=== PATIENT | female | born 1980 | race Caucasian/White ===

== ENCOUNTER 2016-12-05 19:58 | Emergency (ER) | payer OTHER ==
[2016-12-05 20:08] VITALS: BP 128/85
--- NOTE | 2016-12-05 21:41 | RAD ---
INDICATION: Left ankle pain after landing wrong thing in the kitchen. COMPARISON: None. TECHNIQUE: 3 views of the left ankle were obtained. FINDINGS: At the distal most tip of the fibular malleolus there is a bony fragment with a poorly corticated edge adjacent to the fibula. Remaining visualized bones are intact and appropriately aligned. The ankle mortise is symmetric. IMPRESSION: POTENTIAL AVULSION FRACTURE AT THE DISTAL LEFT FIBULAR MALLEOLUS. If the patient's symptoms persist, follow-up imaging is recommended.
[2016-12-05] MEDS ORDERED: oxyCODONE/Acetamin 5/325 MG* TAB PO ONE (22:47)
--- NOTE | 2016-12-05 22:49 | ED ---
Lower Extremity - HPI Summary HPI Summary: 36F presents with left ankle pain today. She was dancing and twisted it and felt a pop. She has not been able to ambulate on the area since. There is swelling to the lateral aspect of her ankle. She denies any numbness or tingling. She denies any previous injury. She has not taken anything for pain. - History of Current Complaint Chief Complaint: EDExtremityLower Stated Complaint: LEFT ANKLE INJURY Time Seen by Provider: 12/05/16 21:19 Hx Last Menstrual Period: IUD-DOESN'T GET Pain Intensity: 8 - Allergies/Home Medications Allergies/Adverse Reactions: Allergies Allergy/AdvReac Type Severity Reaction Status Date / Time No Known Allergies Allergy Verified 01/17/15 16:04 PMH/Surg Hx/FS Hx/Imm Hx Endocrine/Hematology History: Denies: Hx Anticoagulant Therapy Respiratory History: Denies: Hx Asthma - Cancer History Cancer Type, Location and Year: THYROID CA - Surgical History Surgery Procedure, Year, and Place: LEFT NECK LYMPH NODE REMOVAL, THYROIDECTOMY Infectious Disease History: No Infectious Disease History: Denies: History Other Infectious Disease, Traveled Outside the in Last 30 Days - Family History Known Family History: Positive: None, Other - no problems with bones or joints in parents or siblings - Social History Alcohol Use: Weekly Alcohol Amount: WEEKENDS Substance Use Type: Reports: None Smoking Status (MU): Heavy Every Day Tobacco Smoker Type: Cigarettes Amount Used/How Often: 1 PPD Review of Systems Negative: Fever Negative: Chest Pain Negative: Shortness Of Breath Positive: Myalgia - left ankle All Other Systems Reviewed And Are Negative: Yes Physical Exam Triage Information Reviewed: Yes Vital Signs On Initial Exam: Initial Vitals Temp Pulse Resp BP Pulse Ox 99.7 F 93 18 128/85 99 12/05/16 20:06 12/05/16 20:06 12/05/16 20:06 12/05/16 20:06 12/05/16 20:06 Vital Signs Reviewed: Yes Appearance: Positive: Pain Distress Skin: Positive: Warm, Dry Head/Face: Positive: Normal Head/Face Inspection Eyes: Positive: Normal, Conjunctiva Clear Respiratory/Lung Sounds: Positive: Clear to Auscultation, Breath Sounds Present Cardiovascular: Positive: Normal, RRR Musculoskeletal: Positive: Limited @ - left ankle, Edema Left - ankle lateral aspect of ankle, Other - good pulses, capillary refill<2secs Diagnostics - Vital Signs Vital Signs Temp Pulse Resp BP Pulse Ox 12/05/16 21:31 99.3 F 93 18 128/85 97 12/05/16 20:06 99.7 F 93 18 128/85 99 - Laboratory Lab Statement: Any lab studies that have been ordered have been reviewed, and results considered in the medical decision making process. - Radiology ankle Xray Interpretation: Positive (See Comments) - IMPRESSION: POTENTIAL AVULSION FRACTURE AT THE DISTAL LEFT FIBULAR MALLEOLUS. Radiology Interpretation Completed By: Radiologist Lower Extremity Course/Dx - Course Course Of Treatment: 36F presents with left ankle pain today. She was dancing and twisted it and felt a pop. She has not been able to ambulate on the area since. There is swelling to the lateral aspect of her ankle. She denies any numbness or tingling. She denies any previous injury. She has not taken anything for pain. neurovascular intact. swelling over lateral aspect ankle. xray avulsion fx of distal fibula so will treat as sprain with cam walking boot. patient understands and agrees with plan. - Diagnoses Differential Diagnosis/HQI/PQRI: Positive: Fracture (Closed), Sprain, Strain Provider Diagnoses: Left ankle injury, Avulsion fracture of distal fibula Discharge - Discharge Plan Condition: Good Disposition: HOME Prescriptions: oxyCODONE/Acetamin 5/325 MG* [Percocet 5/325 TAB*] 1 tab PO Q6H PRN #12 tab MDD 4 PRN Reason: Pain Patient Education Materials: Ankle Sprain (ED) Referrals: Farooq Haque MD [Primary Care Provider] - Augustine Mena MD [Medical Doctor] - Additional Instructions: Stay off ankle as much as possible Ice, elevate, Ibuprofen every 6 hours for pain, use narcotic for break through pain Follow up with primary or ortho if no improvement Return to ED if develop any new or worsening symptoms
[2016-12-05] MEDS: oxyCODONE/Acetamin 5/325 MG* TAB PO ONE ×2 (23:01→23:26)
== END 2016-12-05 23:10 | disposition home or self-care (01) ==
LOC: ED 19:58
DX: S99.912A Unspecified injury of left ankle, initial encounter (principal); S82.832A Other fracture of upper and lower end of left fibula, initial encounter for closed fracture; X50.9XXA Other and unspecified overexertion or strenuous movements or postures, initial encounter; Y93.41 Activity, dancing; Y92.89 Other specified places as the place of occurrence of the external cause; F17.210 Nicotine dependence, cigarettes, uncomplicated
CPT/HCPCS: 99282; A9270-GY

== ENCOUNTER 2017-06-12 13:47 | Emergency (ER) | payer OTHER ==
--- OUTSIDE RECORDS SUMMARY | 2017-06-12 14:03 | XMS REPORT ---
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 Cigarette Use Less Than A Pack Per Day ETOH Use Consumes 1 glass of wine per day Smoking Patient is a former smoker Recreational Drug Use Never Used Drugs Enjoy Exercising Does enjoy exercising Currently Active The patient is currently sexually active Contraceptive Methods Current methods of control used include levonorgestrel Ius Allergies, Adverse Reactions, Alerts Date Description Reaction Status Severity Comments 12/22/2010 NKDA active Medications Medication Date Status Form Strength Qnty SIG Indications Ordering Provider Effexor XR / Active Caps ER 225mg 1 by Unknown 0000 24HR mouth every day Levothyroxine / Active Tablets 125mcg 1 by Unknown Sodium 0000 mouth every day Mirena (52 MG) / Active IUD 20mcg/24HR 2015 Unknown 0000 Pindolol / Active Tablets 10mg Unknown 0000 Levothyroxine 05/31/ Hx Tablets 137mcg 60tabs 1 by Farooq A. Sodium 2017 - mouth Garland, 12/08/ daily M.D. 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 09/03/ needed 2015 Ciprofloxacin 01/30/ Hx Tablets 250mg 6tabs 1 tab by 599.0 Zina HCL 2014 - mouth Brie, 02/02/ twice a Afnp-C 2014 day x 3 days Bupropion HCL 05/30/ Hx Tablets ER 150mg 30tabs take one 305.1 Farooq Knight XL 2014 - 24HR tablet by Garland, 01/30/ mouth one M.D. 2014 time daily Nicotine 05/30/ Hx Gum 2mg QS 1 piece 305.1 Farooq Knight Polacrilex 2014 - tid-qid Garland, 01/30/ M.D. 2013 Amoxicillin/Cla 05/09/ Hx Tablets 875-125mg 20tabs 1 po bid 461.9 Zina vulanate 2013 - x 10 days Brie, Potassium 05/30/ Afnp-C 2014 Tobramycin 05/09/ Hx Solution 0.3% 1Bottl 1-2 gtts 372.00 Zina Sulfate 2012 - e into both Brie, 05/30/ eyes q 4 Afnp-C 2014 hrs x 5 days Out Of Work 05/04/ Hx out of 079.99 Zina 2012 - work Brie, 05/09/ today and Afnp-C 201205/07/12 due to illness Synthroid / Hx Tablets 150mcg 90tabs 1 po qd Farooq A. 0000 - brand Garland, 06/19/ name only M.D. 2015 Synthroid / Hx Tablets 137mcg 117tab Take One Farooq A. 0000 - s Tablet By Garland, 05/04/ Mouth M.D. 2013 Daily Monday Thru Monday Wellbutrin SR / Hx Tablets ER 150mg 1 po qd Unknown 0000 - 12HR 2013 Effexor XR / Hx Caps ER 150mg 1 by Unknown 0000 - 24HR mouth 2016 Pindolol / Hx Tablets 10mg 1 po qd Unknown 0000 - 2016 Alprazolam / Hx Tablets 0.5mg as Unknown 0000 - dreicted 2017 Adderall XR / Hx Caps ER 15mg 1 by Unknown 0000 - 24HR mouth day 2017 dt Oxycodone-Aceta / Hx Tablets 5-325mg 1 po Unknown minophen 0000 - q6hrs prn 2017 Medications Administered in Office Medication Date Status Form Strength Qnty SIG Indications Ordering Provider TB Intradermal Administered Injection Unknown Test 014 Immunizations CPT Code Status Date Vaccine Lot # [id number] Given 03/18/2016 Influenza Vac, Quadriv[place], [place] [id number] Given 04/17/2015 Influenza Vac, [place]riv[place] [address] Given 11/11/2014 MMR Virus Immunization [id number] Given 07/07/2014 MMR Virus Immunization [id number] Given 03/03/2014 DO Not Use Split Influenza Virus Vaccine [id number] Given 04/06/2013 DO Not Use Split Influenza Virus Vaccine Vital Signs Date Vital Result Comment 05/23/2017 BP Systolic 114 mmHg BP Diastolic 60 mmHg Heart Rate 96 /min Body Temperature 100.8 F Height 64 inches 5'4" Weight 155.00 lb BMI (Body Mass Index) 26.6 kg/m2 12/08/2016 BP Systolic 122 mmHg BP Diastolic 82 mmHg Heart Rate 88 /min Body Temperature 98.1 F Respiratory Rate 16 /min Height 64 inches 5'4" 05/30/2016 BP Systolic 120 mmHg BP Diastolic 84 mmHg Heart Rate 80 /min Body Temperature 98.4 F Respiratory Rate 16 /min Height 64 inches 5'4" Weight 160.00 lb BMI (Body Mass Index) 27.5 kg/m2 06/19/2015 BP Systolic 102 mmHg BP Diastolic 64 mmHg Heart Rate 76 /min Body Temperature 98.1 F Respiratory Rate 16 /min Height 64 inches 5'4" Weight 141.50 lb BMI (Body Mass Index) 24.3 kg/m2 09/03/2014 BP Systolic 110 mmHg BP Diastolic 70 mmHg Heart Rate 72 /min Body Temperature 97.1 F Respiratory Rate 14 /min Height 64 inches 5'4" Weight 150.00 lb BMI (Body Mass Index) 25.7 kg/m2 05/14/2014 BP Systolic 120 mmHg BP Diastolic 68 mmHg Heart Rate 76 /min Body Temperature 98.5 F Respiratory Rate 12 /min Height 64 inches 5'4" Weight 157.00 lb BMI (Body Mass Index) 26.9 kg/m2 03/03/2014 BP Systolic 110 mmHg BP Diastolic 70 mmHg Heart Rate 60 /min Body Temperature 98.5 F Respiratory Rate 12 /min Height 64 inches 5'4" Weight 151.00 lb BMI (Body Mass Index) 25.9 kg/m2 01/30/2014 BP Systolic 120 mmHg BP Diastolic 70 mmHg Heart Rate 88 /min Body Temperature 99.5 F Respiratory Rate 18 /min Height 64 inches 5'4" Weight 152.00 lb BMI (Body Mass Index) 26.1 kg/m2 05/30/2013 BP Systolic 120 mmHg BP Diastolic 74 mmHg Heart Rate 84 /min Body Temperature 99.2 F Respiratory Rate 17 /min Height 64 inches 5'4" Weight 152.00 lb BMI (Body Mass Index) 26.1 kg/m2 05/09/2012 BP Systolic 102 mmHg BP Diastolic 60 mmHg Heart Rate 68 /min Body Temperature 97.3 F Respiratory Rate 18 /min Height 64 inches 5'4" Weight 150.00 lb BMI (Body Mass Index) 25.7 kg/m2 05/04/2012 BP Systolic 100 mmHg BP Diastolic 60 mmHg Heart Rate 100 /min Body Temperature 100.3 F Height 64 inches 5'4" Weight 146.00 lb BMI (Body Mass Index) 25.1 kg/m2 02/07/2011 BP Systolic 110 mmHg BP Diastolic 60 mmHg Heart Rate 88 /min Body Temperature 98.7 F Respiratory Rate 16 /min Height 64 inches 5'4" Weight 154.00 lb BMI (Body Mass Index) 26.4 kg/m2 12/22/2010 BP Systolic 120 mmHg BP Diastolic 70 mmHg Heart Rate 80 /min Body Temperature 99.0 F Respiratory Rate 16 /min Height 64 inches 5'4" Weight 150.00 lb BMI (Body Mass Index) 25.7 kg/m2 Right Visual Acuity Distance 20/20 corrected Left Visual Acuity Distance 20/20 corrected Results Test Date Test Result H/L Range Note Influenza A&B-fma 05/23/2017 Influenza A POS Influenza B NEG Laboratory test finding 05/30/2016 TSH 17.10 mIU/L High 0.50-6.00 1 Comprehensive Metabolic Prof 05/30/2016 Sodium 147 mEq/L 134-149 Potassium 4.0 mEq/L 3.6-5.5 Chloride 110 mEq/L 94-112 Carbon Dioxide 26 mEq/L 21-32 Glucose 100 mg/dL 70-105 BUN 15 mg/dL 6-26 Creatinine 0.8 mg/dL 0.6-1.4 BUN/Creat Ratio 18.8 CALC 8.0-36.0 Calcium 10.1 mg/dL 8.6-10.2 Total Protein 7.6 g/dL 6.4-8.3 Albumin 4.7 g/dL 3.8-5.5 Globulin 2.9 g/dL 2.0-4.8 A/G Ratio 1.6 CALC 0.6-2.3 Alk. Phosphatase 72 U/L 30-110 Alt (SGPT) 21 U/L 7-35 Ast (Sgot) 18 U/L 5-34 Total Bilirubin 0.5 mg/dL 0.2-1.3 GFR Non- >60 ml/min/1.73m^ >=60 GFR >60 ml/min/1.73m^ >=60 Complete Blood Count 05/30/2016 WBC 6.8 x10^3/UL 3.6-9.6 RBC 4.93 x10^6/UL 3.90-5.70 HGB 15.2 g/dL 12.1-17.2 HCT 45 % 36-50 MCV 91.0 fL 82.2-97.4 MCH 30.8 pg 27.6-33.3 MCHC 33.8 g/dL 33.0-35.5 RDW 13.9 % High 11.6-13.7 PLT 255 x10^3/UL 150-400 MPV 8.3 fL 7.4-10.4 Gran # 4.4 x10^3/UL 1.5-7.2 Lymph# 2.1 x10^3/UL 0.7-4.9 Fentress# 0.3 x10^3/UL 0.1-0.9 Gran % 62.3 % 42.2-75.2 Lymph % 32.0 % 20.5-51.1 Fentress% 5.7 % 1.7-9.3 Tamar Panel-LD ([facility]) 05/30/2016 Antinuclear Antibodies, Ifa Negative 2, 3 Anti-dsDNA Antibodies 1 IU/mL 0-9 2, 4 Hla B 27 Disease Association Negative 2, 5 Sjogren's AB, Anti-SS-A/-SS-B 05/30/2016 Sjogren's Anti-SS-A <0.2 AI 0.0-0.9 2 Sjogren's Anti-SS-B <0.2 AI 0.0-0.9 2 Rheumatoid Arthritis Factor 05/30/2016 Ra Latex Turbid. 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 Antibodies <0.2 AI 0.0-0.9 2 Antigens Fong Antibodies <0.2 AI 0.0-0.9 2 Lyme AB/Western Blot Reflex 05/30/2016 Lyme IgG/IgM Ab <0.91 ISR 0.00- 0.90 2, 6 Lyme Disease Ab, Quant, IgM <0.80 index 0.00-0.79 2, 7 Ebv Acute Infection 05/30/2016 Ebv Ab Vca, IgM <36.0 U/mL 0.0-35.9 2 , 8 Antibodies Profile Ebv Early Antigen Ab, IgG <9.0 U/mL 0.0-8.9 2, 9 Ebv Ab Vca, IgG 55.6 U/mL High 0.0-17.9 2, 10 Ebv Nuclear Antigen Ab, IgG 530.0 U/mL High 0.0-17.9 2, 11 Interpretation: See Comment: 2, 12 CMV Igg/Igm 05/30/2016 Cytomegalovirus (CMV) Ab, IgG <0.60 U/mL 0.00- 0.59 2, 13 Cytomegalovirus (CMV) Ab, IgM <30.0 AU/mL 0.0-29.9 2, 14 Laboratory test finding 04/10/2015 [facility] [place] [facility] Test SEEE SCANNED Rubella Igg Titer 12/01/2014 Rubella IgG Antibody Positive 15 Rubella IgG Antibody Index 2.4 16 Mumps Igg 12/01/2014 Mumps Virus IgG Antibody Positive 17 Mumps IgG Antibody Index 3.2 18 Rubeola Measles Igg AB 12/01/2014 Rubeola (Measles) IgG Antibody Positive 19 Rubeola IgG Antibody Index 2.4 20 Urine (Fma) 11/11/2014 SP Grav <1.005 Urine, (Fma/CMC/CTX) negative Laboratory test finding 09/09/2014 Clotest SEE RESULT BELOW 21 Laboratory test finding 09/09/2014 Surgical Interface Order SEE RESULT BELOW 22 Urine (Fma) 06/23/2014 SP Grav 1.025 Urine, (Fma/CMC/CTX) NEGATIVE Urine (Fma) 05/14/2014 SP Grav 1.020 Urine, (Fma/CMC/CTX) neg Laboratory test finding 05/14/2014 Lipase 11 U/L 11.0-82.0 , 24 Laboratory test finding 05/14/2014 Amylase, Serum 73 U/L 20-105 Complete Blood Count 05/14/2014 WBC 8.6 x10^3/UL 3.6-9.6 RBC 4.73 x10^6/UL 3.90-5.70 HGB 14.4 g/dL 12.1-17.2 HCT 43 % 36-50 MCV 91.0 fL 82.2-97.4 MCH 30.4 pg 27.6-33.3 MCHC 33.6 g/dL 33.0-35.5 RDW 12.5 % 11.6-13.7 PLT 275 x10^3/UL 150-400 MPV 8.3 fL 7.4-10.4 Gran # 6.3 x10^3/UL 1.5-7.2 Lymph# 2.1 x10^3/UL 0.7-4.9 Fentress# 0.2 x10^3/UL 0.1-0.9 Gran % 72.4 % 42.2-75.2 Lymph % 24.6 % 20.5-51.1 Fentress% 3.0 % 1.7-9.3 Comprehensive Metabolic Prof 05/14/2014 Sodium 137 mEq/L 134-149 Potassium 3.8 mEq/L 3.6-5.5 Chloride 97 mEq/L 94-112 Carbon Dioxide 29 mEq/L 21-32 Glucose 92 mg/dL 70-105 BUN 14 mg/dL 6-26 Creatinine 0.8 mg/dL 0.6-1.4 BUN/Creat Ratio 17.5 CALC 8.0-36.0 Calcium 9.4 mg/dL 8.6-10.2 Total Protein 7.6 g/dL 6.4-8.3 Albumin 4.4 g/dL 3.8-5.5 Globulin 3.2 g/dL 2.0-4.8 A/G Ratio 1.4 CALC 0.6-2.3 Alk. Phosphatase 60 U/L 30-110 Alt (SGPT) 12 U/L 7-35 Ast (Sgot) 13 U/L 5-34 Total Bilirubin 0.6 mg/dL 0.2-1.3 Laboratory test 05/14/2014 Troponin <0.06 ng/mL Low 0.00-2.30 25 finding Varicella Zoster Igg 03/03/2014 Varicella-Zoster Positive 26, 27 AB IgG Antibody Varicella IgG Antibody Index 4.8 26, 28 Hepatitis B Zhen AB Titer 03/03/2014 Hepatitis B Surface AB Reactive Nonreactive 26 Hep B Surf AB Level > 1000.00 mIU/mL <12 26, 29 Laboratory test finding 03/03/2014 TSH 0.09 mIU/L Low 0.50-6.00 30 Comprehensive Metabolic Prof 03/03/2014 Sodium 137 mEq/L 134-149 Potassium 3.8 mEq/L 3.6-5.5 Chloride 105 mEq/L 94-112 Carbon Dioxide 25 mEq/L 21-32 Glucose 91 mg/dL 70-105 BUN 11 mg/dL 6-26 Creatinine 0.7 mg/dL 0.6-1.4 BUN/Creat Ratio 15.7 CALC 8.0-36.0 Calcium 8.9 mg/dL 8.6-10.2 Total Protein 7.3 g/dL 6.4-8.3 Albumin 4.6 g/dL 3.8-5.5 Globulin 2.7 g/dL 2.0-4.8 A/G Ratio 1.7 CALC 0.6-2.3 Alk. Phosphatase 68 U/L 30-110 Alt (SGPT) 16 U/L 7-35 Ast (Sgot) 16 U/L 5-34 Total Bilirubin 0.5 mg/dL 0.2-1.3 Lipid Profile 03/03/2014 Cholesterol 151 mg/dL 120-200 Triglycerides 68 mg/dL 30-200 HDL Cholesterol 47 mg/dL 30-85 LDL (Calculated) 90 CALC 0-129 VLDL Cholesterol 14 mg/dL 0-50 HDL Risk Factor 3.2 CALC 0.0-4.4 Mumps Igg 03/03/2014 Mumps Virus IgG Antibody Positive 26, 31 Mumps IgG Antibody Index 1.8 26, 32 Rubeola Measles Igg AB 03/03/2014 Rubeola (Measles) IgG Antibody Negative 26, 33 Rubeola IgG Antibody Index 0.8 26, 34 MMR Screen ([facility]) 03/03/2014 Rubella Screen Immune IU/mL Immune 26, 35 Ua - Micro (Fma) 01/30/2014 Appearance clear Color yellow Glucose, Urine (Fma/CMC/CTX) neg Bilirubin neg Ketones neg SP Grav 1.015 Blood small PH 7.0 Protein neg Urobil 0.2 Nitrite neg Leukocytes (Fma/CMC/Centrex) moderate Hyaline - /Lpf Granular - /Lpf WBC (a,Centrex) 10-12 RBC - Mucus - /Lpf Epith rare /Lpf Bacteria 2+ /Hpf Amorphous - /Lpf Crystals, Fluid (Fma/CMC/CTX) - Z#Comments - Laboratory test finding 01/30/2014 Urine Culture Escherichia coli 36 Influenza A&B 05/04/2012 Influenza A neg Influenza B neg Laboratory test finding 05/04/2012 Quickstrep neg Negative Throat - Beta Strep Fma Neg @ 48 hrs CBC Auto Diff 01/25/2011 White Blood Count 6.5 CUMM 4.8-10.8 Red Cell Count 4.40 CUMM 4.2-5.4 Hemoglobin 13.4 g/dL 12.0-16.0 Hematocrit 39 % 35-47 Mean Corpuscular Volume 88 um3 79-97 Mean Corpuscular Hemoglob 31 pg 27-31 Mean Corpuscular HGB Cone 35 g/dL 32-36 Redcell Distribution WDTH 13 % 10.5-15 Platelet Count 244 CUMM 150-450 Mean Platelet Volume 10.4 um3 7.4-10.4 Gran % 60.3 % 38-83 Lymph % 30.4 % 25-47 Mononuclear % 5.6 % 1-9 Eosinophil % 2.1 % 0-6 Basophil % 1.6 % 0-2 Abs Lymphs 2.0 1.0-4.8 Abs Mononuclear 0.4 0-0.8 Absolute Neutrophil Count 3.9 1.5-7.7 Abs Eosinophils 0.1 0-0.6 Abs Basophils 0.1 0-0.2 Basic Metabolic Panel 01/25/2011 Sodium 142 mmol/L 135-145 Potassium 4.1 mmol/L 3.5-5.0 Chloride 108 mmol/L 101-111 Co2 (Carbon Dioxide) 30.0 mmol/L 22-32 Anion Gap 4.0 mmol/L 2-11 37 Glucose 90 mg/dL 70-100 BUN 9 mg/dL 6-24 Creatinine 0.7 mg/dL 0.50-1.40 One Over Creatinine 1.42 BUN/Creatinine Ratio 12.9 8-20 Calcium 9.4 mg/dL 8.1-9.9 eGFR Non- 98.9 > 60 eGFR 127.2 > 60 38 Laboratory test finding 01/25/2011 Thyroxine 6.8 g/dL 5-12 T3 Total 0.98 NG/ML 0.5-1.7 TSH 0.61 MIU/ML 0.34-5.60 1 RESULTS VERIFIED BY REPEAT ANALYSIS 2 2 sst 3 Negative <1:80 Borderline 1:80 Positive >1:80 4 Negative <5 Equivocal 5 - 9 Positive >9 5 HLA-B*27 Negative HLA allele interpretation for all loci based on IMGT/HLA database version 3.25.0 HLA Lab CLIA ID Number [id number] This test was performed using PCR (Polymerase Chain Reaction)/SSOP (Sequence Specific Oligonucleotide Probes) technique. SBT (Sequence Based Typing) and/or SSP (Sequence Specific Primers) may be used as supplemental methods when necessary. Please contact [facility] Customer Service at if you have any questions. Director of [facility] Laboratory Dr Scotty Chavez, PhD 6 Negative <0.91 Equivocal 0.91 - 1.09 Positive >1.09 7 Negative <0.80 Equivocal 0.80 - 1.19 Positive >1.19 IgM levels may peak at 3-6 weeks post infection, then gradually decline. 8 Negative <36.0 Equivocal 36.0 - 43.9 Positive >43.9 9 Negative < 9.0 Equivocal 9.0 - 10.9 Positive >10.9 10 Negative <18.0 Equivocal 18.0 - 21.9 Positive >21.9 11 Negative <18.0 Equivocal 18.0 - 21.9 Positive >21.9 12 EBV Interpretation Chart Interpretation EBV-IgM EA(D)-IgG VCA-IgG EBNA-IgG EBV Seronegative - - - - Early Phase + - - - Acute Primary + +or- + - Infection Convalescence/Past - +or- + + Infection Reactivated +or- + + + Infection + Antibody Present - Antibody Absent 13 Negative <0.60 Equivocal 0.60 - 0.69 Positive >0.69 14 Negative <30.0 Equivocal 30.0 - 34.9 Positive >34.9 A positive result is generally indicative of acute infection, reactivation or persistent IgM production. 15 Results suggest response to immunization or prior exposure to the virus. REFERENCE VALUE Vaccinated: Positive (>=1.0 AI) Unvaccinated: Negative (<=0.7 AI) 16 Test Performed by: [facility] [place] [address] Facs Teacher: Fly Gross II, M.D., Ph.D. 17 Results suggest response to immunization or prior exposure to the virus. REFERENCE VALUE Vaccinated: Positive (>=1.1 AI) Unvaccinated: Negative (<=0.8 AI) 18 Test Performed by: [facility] [place] [address] Facs Teacher: Fly Gross II, M.D., Ph.D. 19 Results suggest response to immunization or prior exposure to the virus. REFERENCE VALUE Vaccinated: Positive (>=1.1 AI) Unvaccinated: Negative (<=0.8 AI) 20 Test Performed by: [place] [address] Facs Teacher: Fly Gross II, M.D., Ph.D. 21 SEE RESULT BELOW Name: ASHLEY GRANADOS : [address]: Luis Mac MD Acct: [id number] Unit: [id number] AGE: 34 Location: [facility] Re09/09/14 SEX: F Status: REG REF SPEC: [id number] JAM: 09/09/14-1222 [facility] DR: Luis Mac MD REQ: [id number] RECD: 09/09/14-1706 STATUS: DYLAN HUNTER DR: Farooq Haque MD _ SOURCE: GAS ANTRUM SPDESC: ORDERED: Clotest Procedure Result Verified Site Clotest Final 09/10/14- 0736 ML Clotest Negative * ML - MAIN LAB (PSC1) . END OF REPORT * ML=Testing performed at Main Lab DEPARTMENT OF PATHOLOGY, [address] [place] [address] Kwesi Salgado M.D. Director [facility] # [id number] 22 SEE RESULT BELOW Name: ASHLEY GRANADOS : [address]: Luis Mac MD Acct: [id number] Unit: [id number] AGE: 34 Location: [facility] Re09/09/14 SEX: F Status: REG REF SPEC: [id number] JAM: 09/09/14-1221 [facility] DR: Luis Mac MD REQ: [id number] RECD: 09/09/14 STATUS: DELMY HUNTER DR: Farooq Haque MD _ ORDERED: LEVEL IV FINAL DIAGNOSIS Small bowel, duodenum, biopsy: -- Small bowel mucosa with normal villous architecture and no significant pathologic abnormality. -- No infectious agents or viral pathologic changes identified. CLINICAL HISTORY No history given. POST-OPERATIVE DIAGNOSIS EGD. Esophagus - normal, Stomach - small - biopsy, Duodenum - normal, biopsy. Conclusion/Plan: PPI, follow up biopsy. GROSS DESCRIPTION The specimen is received in formalin labeled, Duodenal Biopsy, and consists of a 0.5 x 0.2 x 0.1 cm hoang irregular soft tissue fragment, which is submitted entirely in one cassette. Signed (signature on file) Kwesi Salgado MD 1127 END OF REPORT * ML=Testing performed at Main Lab DEPARTMENT OF PATHOLOGY, [address] [place] [address] Kwesi Salgado M.D. Director [facility] # [id number] 23 1 sst 24 1 sst 25 RESULTS VERIFIED BY REPEAT ANALYSIS 26 2 poured off serum 27 Results suggest response to immunization or prior exposure to the virus. REFERENCE VALUE Vaccinated: Positive (>=1.1 AI) Unvaccinated: Negative (<=0.8 AI) 28 Test Performed by: [place] [address] Facs Teacher: Jimenez Drew M.D. 29 This assay does not differentiate between reactivity due to a vaccine-induced immune response or an immune response induced by infection with HBV. 30 RESULTS VERIFIED BY REPEAT ANALYSIS 31 Results suggest response to immunization or prior exposure to the virus. REFERENCE VALUE Vaccinated: Positive (>=1.1 AI) Unvaccinated: Negative (<=0.8 AI) 32 Test Performed by: [place] [address] Facs Teacher: Jimenez Drew M.D. 33 REFERENCE VALUE Vaccinated: Positive (>=1.1 AI) Unvaccinated: Negative (<=0.8 AI) 34 Test Performed by: [place] [address] Facs Teacher: Jimenez Drew M.D. 35 2 poured off serum 36 Escherichia coli >100,000 col/ml URINE CULTURE organism 1 Escherichia coli >100,000 col/ml Ampicillin 8 Susceptible Ampicillin/sulbactam 4 Susceptible Cefazolin <=4 Susceptible Cefoxitin <=4 Susceptible Ciprofloxacin <=0.25 Susceptible Ertapenem <=0.5 Susceptible Gentamicin <=1 Susceptible Imipenem <=0.25 Susceptible Levofloxacin <=0.12 Susceptible Nitrofurantoin <=16 Susceptible Piperacillin/tazobactam <=4 Susceptible Trimethoprim/Sulfa <=20 Susceptible 37 Anion gap measurement may be of limited value in the presence of any alkalosis, especially in a combined acid base disorder. . 38 Because ethnic data is not always readily available, this report includes an eGFR for both -Americans and non- Americans. The National Kidney Disease Education Program (NKDEP) does not endorse the use of the MDRD equation for patients that are not between the ages of 18 and 70, are , have extremes of body size, muscle mass, or nutritional status, or are non- or non-. According to the National Kidney Foundation, irrespective of diagnosis, the stage of the disease is based on the level of kidney function: Stage Description GFR(mL/min/1.73 m(2)) 1 Kidney damage with normal or decreased GFR 90 2 Kidney damage with mild decrease in GFR 60-89 3 Moderate decrease in GFR 30-59 4 Severe decrease in GFR 15-29 5 Kidney failure <15 (or dialysis) Procedures Description No Information Encounters Type Date Location Provider CPT E/M Dx Office Visit 12/08/2016 1:00p Main Office Farooq Haque M.D. 22091 S82.65xA Y92.018 Office Visit 05/30/2016 3:00p [facility] Office Farooq Haque M.D. 14044 R53.83 E03.9 Office Visit 06/19/2015 8:30a [facility] Office TOMAS MacielP 80351 E03.9 Z00.00 Office Visit 09/03/2014 3:00p [facility] Office Farooq Haque M.D. 13450 789.06 Office Visit 05/14/2014 3:30p [facility] Office Farooq Haque M.D. 29479 789.06 Office Visit 03/03/2014 1:00p [facility] Office Farooq Haque M.D. 76416 V70.3 244.9 V04.81 Office Visit 01/30/2014 10:45a Main Office Isidoro Galloway 99689 599.0 Office Visit 05/30/2013 4:20p Main Office Farooq Haque M.D. 39232 305.1 Office Visit 05/09/2012 2:00p [facility] Office Isidoro Galloway 24205 461.9 372.00 Office Visit 05/04/2012 3:15p [facility] Office Sadiq Galloway-Val 60455 079.99 Office Visit 02/07/2011 3:00p [facility] Office Farooq Haque M.D. 98040 785.0 Office Visit 12/22/2010 2:30p [facility] Office Farooq Haque M.D. G0436 244.9 795.00 305.1 Plan of Care 05/23/2017 - Loren Elise, [id number] CoughComments:Coughing is rough on your system. Not only do they make you really tired but they dehydrate you really quickly! ~U_Supportive care~u_: 1) Make sure you are resting. This is the only way the body can take the energy it needs to heal itself. 2) Fluids, fluids, fluids! - Drink a lot of water or other caffeine free, clear liquids - Use a humidifier in your room at night - If tolerated, use a saline nasal spray to help clear out your sinuses 3) Cough and blow it out, the more you can get out of your system the better4) Make sure you are washing your hands well so you are not spreading your illness to the community. 5) You can take Acetaminophen or Ibuprofen as directed for painR50.9 Fever, unspecifiedComments:Tylenol or Ibuprofen for fever/painJ09.x2 Flu due to ident novel influenza A virus w oth resp manifestComments:ED precautions reviewed encouraged fluids, OTC medications no work x 1 weekAllComments:~B_~U_Medication Management~b_~u_ Patient Understands medications she's taking? Yes No Are there Barriers to Adherence? Yes No Has the patient been asked about herbal supplements and therapies, and OTC meds? Yes No ~B_~U_Care Plan~b_~u_1. Patient has been queried about patient's goals/preferences and functional/ lifestyle goals at relevant visits. If relevant, describe: na2. Treatment goals as explained to the patient: above3. Are there barriers to meeting treatment goals? Yes No If Yes, please describe:4. Self-Management goals as described to the patient: Yes NoFollow up:As always, we strongly encourage a healthy diet and making physical activity a part of your every day life. If you have questions about how or where to start, please contact the office.
--- NOTE | 2017-06-12 15:02 | ED ---
Head Injury - HPI Summary HPI Summary: Patient is an otherwise healthy 37-year-old female who presents to the ED with headache, confusion, "fogginess" and mild nausea since last evening after sustaining a head injury at work. She states she hit the very crown of her head on a large metal box while working. Denies loss of consciousness. Denies memory loss. She endorses 9 out of 10 headache which has improved since last night. Continues to have some confusion and fogginess. Denies nausea currently. She has never had a head injury before. History of thyroid cancer which is in remission. Has not taken any medications for relief. Denies any visual changes. Denies neck pain. - History Of Current Complaint Chief Complaint: EDHeadInjury Stated Complaint: HIT HEAD -1DAY, HEADACHE DIZZY Time Seen by Provider: 06/12/17 14:08 Hx Obtained From: Patient Hx Last Menstrual Period: IUD-DOESN'T GET Mechanism Of Injury: Blunt Trauma Onset/Duration: Started Hours Ago Onset of Pain: Immediate Severity Currently: Mild Severity Initially: Mild Pain Intensity: 2 Pain Scale Used: 0-10 Numeric Location of Head Injury: Diffuse Character: Throbbing Alleviating Factor(s): Rest Related History: Similar Episode/Dx as - Risk Factors SDH Risk Factor: Negative - Allergies/Home Medications Allergies/Adverse Reactions: Allergies Allergy/AdvReac Type Severity Reaction Status Date / Time No Known Allergies Allergy Verified 12/08/16 14:38 PMH/Surg Hx/FS Hx/Imm Hx Previously Healthy: Yes Endocrine/Hematology History: Denies: Hx Anticoagulant Therapy, Hx Diabetes Cardiovascular History: Denies: Hx Hypertension, Hx Pacemaker/ICD Respiratory History: Denies: Hx Asthma History: Denies: Hx Renal Disease Sensory History: Denies: Hx Hearing Aid Psychiatric History: Denies: Hx Panic Disorder - Cancer History Cancer Type, Location and Year: THYROID CA Hx Chemotherapy: No Hx Radiation Therapy: Yes - Surgical History Surgery Procedure, Year, and Place: LEFT NECK LYMPH NODE REMOVAL, THYROIDECTOMY - Immunization History Hx Pertussis Vaccination: No Immunizations Up to Date: Unable to Obtain/Confirm Infectious Disease History: No Infectious Disease History: Denies: History Other Infectious Disease, Traveled Outside the [place] in Last 30 Days - Family History Known Family History: Positive: None, Other - no problems with bones or joints in parents or siblings - Social History Occupation: Employed Full-time Lives: With Family Alcohol Use: Weekly Alcohol Amount: WEEKENDS Hx Substance Use: No Substance Use Type: Reports: None Hx Tobacco Use: Yes Smoking Status (MU): Heavy Every Day Tobacco Smoker Type: Cigarettes Amount Used/How Often: 1 PPD Review of Systems Constitutional: Negative Negative: Fever, Chills, Fatigue Eyes: Negative Cardiovascular: Negative Genitourinary: Negative Positive: no symptoms reported, see HPI Musculoskeletal: Negative Neurological: Other - feeling "foggy" Positive: Headache Psychological: Normal All Other Systems Reviewed And Are Negative: Yes Physical Exam Triage Information Reviewed: Yes Vital Signs On Initial Exam: Initial Vitals Temp Pulse Resp BP Pulse Ox 98.7 F 89 16 132/84 99 06/12/17 13:53 06/12/17 13:53 06/12/17 13:53 06/12/17 13:53 06/12/17 13:53 Vital Signs Reviewed: Yes Appearance: Positive: No Pain Distress, Well-Nourished Skin: Positive: Warm, Skin Color Reflects Adequate Perfusion Head/Face: Positive: Normal Head/Face Inspection Eyes: Positive: EOMI, LUCIA, Conjunctiva Clear Neck: Positive: Supple Respiratory/Lung Sounds: Positive: Clear to Auscultation, Breath Sounds Present Cardiovascular: Positive: RRR, Pulses are Symmetrical in both Upper and Lower Extremities Musculoskeletal: Positive: Normal, Strength/ROM Intact Neurological: Positive: Sensory/Motor Intact, Alert, Oriented to Person Place, Time, Speech Normal Psychiatric: Positive: Normal, Affect/Mood Appropriate Diagnostics - Vital Signs Vital Signs Temp Pulse Resp BP Pulse Ox 06/12/17 13:53 98.7 F 89 16 132/84 99 - Laboratory Lab Statement: Any lab studies that have been ordered have been reviewed, and results considered in the medical decision making process. Head Injury Course/Dx Course Of Treatment: During the course of treatment, the patient is evaluated for headache, "fogginess" after hitting her head last night at work on a large metal box. I have discussed at length the risks and benefits to a CT brain and has diagnosed her with a mild concussion. After discussing risks and benefits, patient would like to proceed with a CAT scan. According to [facility] CT Head Rules, CT was NOT obtained d/t: GCS score >15 at 2h post injury. No suspected open or depressed skull fx, no sign of basal skull fx, no hemotympanum, raccoon eyes, Battles sign, CSF wilma-/rhinorrhea, no emesis after injury, age <64yo, no amnesia greater than 30 minutes prior to trauma, and mechanism of injury was minimal impact with no MVA or fall greater than 3 ft. Complete neuro exam completed and WNL. Normal head/face inspection with no cephalohematoma. Reflexes intact. EOMI, LUCIA, visual acuity intact. No obvious confusion or memory loss per patient and family. MMSE OK. GCS 15. Patient oriented to person, place and date. No obvious deformity or signs of trauma. Finger to nose , heel to toe OK. Speech normal, facial symmetry, normal gait, CN II-III intact. Patient denies LOC. ROM, strength, reflexes in upper and lower extremity intact, sensation intact. I have a low suspicion for a bleed, subarachnoid, subdural, or epidural hematoma, however CT scan obtained. Patient declines any pain medicine on arrival. Patient discharged with return precautions and post-concussive symptoms explained to patient. Patient agrees to follow up and return if needed. - Diagnoses Provider Diagnoses: Concussion without loss of consciousness Discharge - Discharge Plan Condition: Stable Disposition: HOME Patient Education Materials: Concussion (ED) Forms: *Work Release Referrals: Farooq Haque MD [Primary Care Provider] - Additional Instructions: Please follow up with PCP as needed Brain rest as discussed Slowly return to normal activities as he began to feel better Tylenol 650 mg 3 times daily for any headache Sleep as much as possible I've given you a note for work for 3 days
--- NOTE | 2017-06-12 15:19 | RAD ---
HISTORY: Calcific syndromes after head injury COMPARISONS: None TECHNIQUE: Multiple contiguous axial CT scans were obtained of the head without intravenous contrast. FINDINGS: HEMORRHAGE/INFARCT: There is no hemorrhage or acute infarct. MASSES/SHIFT: There is no mass or shift. EXTRA-AXIAL SPACES: There are no extra-axial fluid collections. SULCI AND VENTRICLES: The sulci and ventricles are normal in size and position for the patient's stated age. CEREBRUM: There are no focal parenchymal abnormalities. BRAINSTEM: There are no focal parenchymal abnormalities. CEREBELLUM: There are no focal parenchymal abnormalities. VESSELS: The vessels are grossly normal. PARANASAL SINUSES: The paranasal sinuses are clear. ORBITS: The orbits are unremarkable. BONES AND SOFT TISSUE: No bone or soft tissue abnormalities are noted. OTHER: None IMPRESSION: NO ACUTE INTRACRANIAL PATHOLOGY.
[2017-06-12 16:09] VITALS: BP 109/77
== END 2017-06-12 16:08 | disposition home or self-care (01) ==
LOC: ED 13:47
DX: S06.0X0A Concussion without loss of consciousness, initial encounter (principal); W22.8XXA Striking against or struck by other objects, initial encounter; Y92.9 Unspecified place or not applicable; F17.210 Nicotine dependence, cigarettes, uncomplicated
CPT/HCPCS: 70450; 99282

== ENCOUNTER 2017-06-30 17:36 | Emergency (ER) | payer OTHER ==
[2017-06-30 17:49] VITALS: BP 130/83
--- NOTE | 2017-06-30 18:23 | UC ---
Respiratory Complaint HPI - HPI Summary HPI Summary: Patient c/o body aches,fever, cough and malaise since this morning. States it feels very similar to the time she was diagnosed with influenza A in May 2017. She did not take Tamiflu at that time since she considered that the relative benefit of taking it was not worth it. 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 She denies any PMH of respiratory chronic disease/asthma. She smokes 1ppd and is taking venlafaxine and levothyroxine. - History of Current Complaint Chief Complaint: UCRespiratory Stated Complaint: FLU-LIKE Time Seen by Provider: 06/30/17 17:44 Hx Obtained From: Patient Hx Last Menstrual Period: IUD ?: No Onset/Duration: Gradual Onset, Lasting Days Timing: Constant Severity Initially: Mild Severity Currently: Moderate Pain Intensity: 2 Character: Cough: Nonproductive Associated Signs And Symptoms: Positive: Fever, URI, Nasal Congestion - Risk Factors Pulmonary Embolism Risk Factors: Negative Cardiac Risk Factors: Smoking Pseudomonas Risk Factors: Negative Tuberculosis Risk Factors: Negative - Allergies/Home Medications Allergies/Adverse Reactions: Allergies Allergy/AdvReac Type Severity Reaction Status Date / Time No Known Allergies Allergy Verified 06/30/17 17:42 PMH/Surg Hx/FS Hx/Imm Hx Previously Healthy: Yes Endocrine History: Hypothyroidism Psychological History: Depression Other History Of: Negative For: Anticoagulant Therapy - Surgical History Surgical History: Yes Surgery Procedure, Year, and Place: LEFT NECK LYMPH NODE REMOVAL, THYROIDECTOMY - Family History Known Family History: Positive: None, Other - no problems with bones or joints in parents or siblings - Social History Alcohol Use: Occasionally Alcohol Amount: WEEKENDS Substance Use Type: Marijuana Substance Use Comment - Amount & Last Used: once per week Smoking Status (MU): Heavy Every Day Tobacco Smoker Type: Cigarettes Amount Used/How Often: 1 PPD Review of Systems Constitutional: Fever, Chills, Fatigue ENT: Nasal Discharge Respiratory: Cough Cardiovascular: Negative Is Patient Immunocompromised?: No All Other Systems Reviewed And Are Negative: Yes Physical Exam Triage Information Reviewed: Yes Appearance: Ill-Appearing Vital Signs: Initial Vital Signs Temp 100.0 F 06/30/17 17:44 Pulse 110 06/30/17 17:44 Resp 18 06/30/17 17:44 BP 130/83 06/30/17 17:44 Pulse Ox 96 06/30/17 17:44 Vital Signs Reviewed: Yes Eyes: Positive: Conjunctiva Clear ENT: Positive: Hearing grossly normal, Pharynx normal, Nasal congestion, TMs normal, Uvula midline Neck: Positive: Supple, Nontender, No Lymphadenopathy Respiratory: Positive: Chest non-tender, Lungs clear, Normal breath sounds, No respiratory distress, No accessory muscle use Cardiovascular: Positive: RRR, No Murmur, Pulses Normal, Brisk Capillary Refill Abdomen Description: Positive: Nontender Bowel Sounds: Positive: Present UC Diagnostic Evaluation - Laboratory O2 Sat by Pulse Oximetry: 96 Respiratory Course/Dx - Course Course Of Treatment: Rapid influenza test negative. Continue rest, PO fluids, tylenol if fever is greater than 101.5F or pain. - Differential Dx/Diagnosis Provider Diagnoses: viral URI Discharge - Discharge Plan Condition: Stable Disposition: HOME Patient Education Materials: Viral Syndrome (ED) Forms: *Work Release Referrals: Farooq Haque MD [Primary Care Provider] -
== END 2017-06-30 18:42 | disposition home or self-care (01) ==
LOC: UCEAST 17:36
DX: J06.9 Acute upper respiratory infection, unspecified (principal); F17.210 Nicotine dependence, cigarettes, uncomplicated; E03.9 Hypothyroidism, unspecified; F32.9 Major depressive disorder, single episode, unspecified
CPT/HCPCS: 87502; 99211; G0463

== ENCOUNTER 2018-03-02 16:42 | Emergency (ER) | payer OTHER ==
[2018-03-02 16:56] VITALS: BP 128/87
[2018-03-02] MEDS ORDERED: Cyclobenzaprine TAB* 10 MG PO ONE (18:52)
[2018-03-02] MEDS ORDERED: Ketorolac INJ* 60 MG/2 ML VIAL IM ONE (18:52)
--- NOTE | 2018-03-02 19:10 | UC ---
Neck Pain HPI - HPI Summary HPI Summary: 2 days of progressively worsening right-sided neck pain. Denies numbness/ tingling. No injury that she is aware of. Worse with movement. Spends a lot of time in front of a computer. Yesterday ibuprofen and heat helped. Took a dose of ibuprofen at 3 AM and states it did not alleviate her symptoms at all. - History of Current Complaint Chief Complaint: UCBackPain Stated Complaint: NECK INJURY Time Seen by Provider: 03/02/18 18:38 Hx Obtained From: Patient Hx Last Menstrual Period: IUD Onset/Duration Of Injury/Symptoms: Days Mechanism Of Injury: No Known Trauma Timing: Constant Onset/Duration: Gradual Onset, Lasting Days, Still Present Severity: Moderate Pain Intensity: 7 Pain Scale Used: 0-10 Numeric Location: Discrete At: - RIGHT NECK Character: Stiff, Spasmotic Aggravating Factors: Movement Alleviating Factors: Heat, OTC Meds - IBUPROFEN Associated Signs & Symptoms: Positive: Negative - Allergies/Home Medications Allergies/Adverse Reactions: Allergies Allergy/AdvReac Type Severity Reaction Status Date / Time No Known Allergies Allergy Verified 03/02/18 16:57 Home Medications: Home Medications Bupropion XL* [Wellbutrin XL *] 300 mg PO DAILY 03/02/18 [History Confirmed 06/18] PMH/Surg Hx/FS Hx/Imm Hx Endocrine History: Hypothyroidism GI/ History: Ulcer Other Cancer History: THYROID Other History Of: Negative For: Anticoagulant Therapy - Surgical History Surgical History: Yes Surgery Procedure, Year, and Place: LEFT NECK LYMPH NODE REMOVAL, THYROIDECTOMY - Family History Known Family History: Positive: None, Other - no problems with bones or joints in parents or siblings - Social History Alcohol Use: Weekly Alcohol Amount: WEEKENDS Substance Use Type: None Substance Use Comment - Amount & Last Used: once per week Smoking Status (MU): Former Smoker Type: Cigarettes Amount Used/How Often: 1 PPD Review Of Systems Constitutional: Positive: Negative Skin: Positive: Negative Respiratory: Positive: Negative Cardiovascular: Positive: Negative Gastrointestinal: Positive: Negative Musculoskeletal: Positive: Arthralgia, Decreased ROM, Myalgia All Other Systems Reviewed And Are Negative: Yes Physical Exam Triage Information Reviewed: Yes Appearance: Well-Appearing, Well-Nourished, Pain Distress - MODERATE Vital Signs: Initial Vital Signs Temp 98.7 F 03/02/18 16:51 Pulse 89 03/02/18 16:51 Resp 16 03/02/18 16:51 BP 128/87 03/02/18 16:51 Pulse Ox 100 03/02/18 16:51 Vital Signs Reviewed: Yes Eyes: Positive: Conjunctiva Clear ENT: Positive: Hearing grossly normal Neck: Positive: Supple, Nontender, No Lymphadenopathy Respiratory: Positive: No respiratory distress, No accessory muscle use Cardiovascular: Positive: Pulses Normal Abdomen Description: Positive: Soft Musculoskeletal: Positive: No Edema, ROM Limited @ - NECK, Other: - NO TENDERNESS OVER SPINE OR PARASPINOUS MUSCLES Neurological: Positive: Alert Psychological: Positive: Age Appropriate Behavior Skin: Negative: rashes Neck Pain Course/Dx - Course Course Of Treatment: Presentation consistent with acute muscle strain. No indication for x-rays today. Rest, stretch, heat, massage. Flexeril and meloxicam and prednisone. Follow-up with PCP. - Differential Dx/Diagnosis Provider Diagnoses: ACUTE MUSCLE STRAIN/RIGHT NECK PAIN Discharge - Sign-Out/Discharge Documenting (check all that apply): Patient Departure All imaging exams completed and their final reports reviewed: No Studies - Discharge Plan Condition: Stable Disposition: HOME Prescriptions: Cyclobenzaprine TAB* [Flexeril TAB*] 10 mg PO BID PRN #30 tab PRN Reason: Pain Meloxicam [Mobic] 7.5 mg PO BID PRN #30 tab PRN Reason: Pain predniSONE TAB* [Deltasone 20 MG TAB*] 40 mg PO DAILY #10 tab Patient Education Materials: Cervical Strain (ED), Muscle Strain (ED) Referrals: Farooq Haque MD [Primary Care Provider] - If Needed Additional Instructions: YOUR PRESENTATION IS CONSISTENT WITH AN ACUTE MUSCLE STRAIN. YOUR SYMPTOMS SHOULD IMPROVE SIGNIFICANTLY OVER THE NEXT 1-2 WEEKS. IF YOU DO NOT IMPROVE EXPECTED FOLLOW-UP WITH YOUR PCP. YOU MAY BENEFIT FROM IMAGING AT THAT TIME. REST. MELOXICAM FOR PAIN AND INFLAMMATION. PREDNISONE MAY ALSO HELP REDUCE INFLAMMATION. TAKE MUSCLE RELAXER BEFORE BED. BE SURE TO GO THROUGH SLOW RANGE OF MOTION AND STRETCHING EXERCISES DAILY YOU ARE ABLE TO PREVENT FURTHER STIFFENING UP AND MAKING THE DISCOMFORT WORSE. GO TO THE ED WITHOUT FAIL IF YOU DEVELOP WORSENING PAIN, WEAKNESS, NUMBNESS/ TINGLING OR ANY OTHER CONCERNING SYMPTOMS. - Billing Disposition and Condition Condition: STABLE Disposition: Home
== END 2018-03-02 19:38 | disposition home or self-care (01) ==
LOC: UCEAST 16:42
DX: M54.2 Cervicalgia (principal); Z87.891 Personal history of nicotine dependence
CPT/HCPCS: 96372; 99212; A9270-GY; G0463; J1885

== ENCOUNTER 2018-08-31 10:22 | Emergency (ER) | payer OTHER ==
[2018-08-31 10:54] VITALS: BP 111/76
--- NOTE | 2018-08-31 13:14 | UC ---
Ear Complaint HPI - HPI Summary HPI Summary: ONSET THIS MORNING OF SHARP LIGHTENING BOLT-LIKE INTERMITTENT PAIN ON THE LEFT SIDE OF HER FACE ANTERIOR TO HER EAR. NO HEARING LOSS OR DRAINAGE FROM THE EAR. STATES SHE HAS HAD SOME VAGUE LEFT-SIDED FACIAL DISCOMFORT FOR A COUPLE OF WEEKS. NO TRAUMA OR URI SYMPTOMS. - History of Current Complaint Chief Complaint: UCEar Stated Complaint: EAR PAIN Time Seen by Provider: 08/31/18 11:43 Hx Obtained From: Patient Hx Last Menstrual Period: unknown Onset/Duration: Sudden Onset Severity Initially: Moderate Severity Currently: Mild Pain Intensity: 5 Pain Scale Used: 0-10 Numeric Aggravating Factors: Nothing Alleviating Factors: Nothing Associated Signs/Symptoms: Negative: Discharge, Hearing Loss, Trauma to Ear, URI Symptoms - Allergies/Home Medications Allergies/Adverse Reactions: Allergies Allergy/AdvReac Type Severity Reaction Status Date / Time No Known Allergies Allergy Verified 08/31/18 10:54 PMH/Surg Hx/FS Hx/Imm Hx Endocrine History: Hypothyroidism Other Cancer History: THYROID CANCER Other History Of: Negative For: Anticoagulant Therapy - Surgical History Surgical History: Yes Surgery Procedure, Year, and Place: LEFT NECK LYMPH NODE REMOVAL, THYROIDECTOMY - Family History Known Family History: Positive: None, Other - no problems with bones or joints in parents or siblings - Social History Alcohol Use: Occasionally Alcohol Amount: 3-4 Substance Use Type: None Substance Use Comment - Amount & Last Used: once per week Smoking Status (MU): Heavy Every Day Tobacco Smoker Type: Cigarettes Amount Used/How Often: 1 PPD Have You Smoked in the Last Year: No Household Exposure Type: Cigarettes Review of Systems All Other Systems Reviewed And Are Negative: Yes Constitutional: Positive: Negative Skin: Positive: Negative Respiratory: Positive: Negative Cardiovascular: Positive: Negative Gastrointestinal: Positive: Negative Neurological: Positive: Other - LEFT SIDED FACIAL PAIN Physical Exam Triage Information Reviewed: Yes Appearance: Well-Appearing, No Pain Distress, Well-Nourished Vital Signs: Initial Vital Signs Temp 99.5 F 08/31/18 10:51 Pulse 101 08/31/18 10:51 Resp 18 08/31/18 10:51 BP 111/76 08/31/18 10:51 Pulse Ox 99 08/31/18 10:51 Vital Signs Reviewed: Yes Eyes: Positive: Conjunctiva Clear ENT: Positive: Hearing grossly normal, Pharynx normal, TMs normal Neck: Positive: Supple, Nontender, No Lymphadenopathy, Other: - LEFT NECK FULLNESS - PT STATES BASELINE SINCE LYMPH NODE REMOVAL Respiratory: Positive: No respiratory distress, No accessory muscle use Cardiovascular: Positive: Pulses Normal Abdomen Description: Positive: Soft Musculoskeletal: Positive: No Edema Neurological: Positive: Alert Psychological: Positive: Age Appropriate Behavior Skin: Negative: Rashes Ear Complaint Course/Dx - Course Course Of Treatment: PATIENT'S SYMPTOMS CONSISTENT WITH LEFT-SIDED TRIGEMINAL NEURALGIA. NO SIGN OF EAR INFECTION ON EXAM TODAY. HAVE ADVISED SHE FOLLOW UP WITH A NEUROLOGIST TO DISCUSS TREATMENT OPTIONS. - Differential Dx/Diagnosis Provider Diagnosis: Left-sided trigeminal neuralgia Discharge - Sign-Out/Discharge Documenting (check all that apply): Patient Departure All imaging exams completed and their final reports reviewed: No Studies - Discharge Plan Condition: Stable Disposition: HOME Patient Education Materials: Trigeminal Neuralgia (ED) Referrals: Kourtney Osorio MD [Medical Doctor] - 3 Days Farooq Haque MD [Primary Care Provider] - 1 Week Additional Instructions: CALL NEUROLOGY TODAY TO SCHEDULE AN APPOINTMENT FOR FURTHER EVALUATION OF YOUR SYMPTOMS. GO TO THE ER WITHOUT FAIL IF YOU EXPERIENCE INCREASING PAIN, NUMBNESS /TINGLING, FACIAL DROOPING OR ANY OTHER CONCERNING SIGNS OR SYMPTOMS. - Billing Disposition and Condition Condition: STABLE Disposition: Home
== END 2018-08-31 12:14 | disposition home or self-care (01) ==
LOC: UCEAST 10:22
DX: G50.0 Trigeminal neuralgia (principal); E03.9 Hypothyroidism, unspecified; Z85.850 Personal history of malignant neoplasm of thyroid; F17.210 Nicotine dependence, cigarettes, uncomplicated
CPT/HCPCS: 99211; G0463

== ENCOUNTER 2018-09-21 15:33 | Day surgery (SDC) | payer OTHER ==
--- NOTE | 2018-09-21 16:01 | ED ---
Complex/Multi-Sys Presentation - HPI Summary HPI Summary: A 38 y/o female presents to [facility] with a chief complaint of heavy vaginal bleeding since 14:00 today. The patient reports that two weeks ago she had a lesion and was seen by Dr. Cannon at [facility] for a LEEP procedure. She claims that she had vaginal spotting and clear discharge for the past two weeks but had heavy bleeding today, going through 2 pads in the first hour and has gone through a couple more afterwards. She c/o some nausea and abdominal pain. Pt denies any fever, chills, erythema of eyes, sore throat, CP, SOB, cough, vomiting, dysuria, hematuria, myalgia, edema, rash, or dizziness. She claims that she has had her thyroid removed and a neck dissection due to cancer. She has not had a blood transfusion before. - History Of Current Complaint Chief Complaint: EDBleedingDisorder Time Seen by Provider: 09/21/18 15:45 Hx Obtained From: Patient Onset/Duration: Sudden Onset, Lasting Hours, Still Present Timing: Constant, Hours Severity Currently: Severe Location: Pain At: - vaginal bleeding Character: Unable To Describe Aggravating Factor(s): nothing Alleviating Factor(s): nothing Associated Signs And Symptoms: Positive: Nausea, Abdominal Pain. Negative: SOB , Cough, Chest Pain, Edema, Vomiting, Diarrhea, Dysuria, Fever - Allergies/Home Medications Allergies/Adverse Reactions: Allergies Allergy/AdvReac Type Severity Reaction Status Date / Time No Known Allergies Allergy Verified 09/25/18 15:07 Home Medications: Home Medications Carbamazepine [Tegretol Xr] 200 mg PO DAILY 09/21/18 [History Confirmed 09/21/18 ] PMH/Surg Hx/FS Hx/Imm Hx Endocrine/Hematology History: Reports: Hx Thyroid Disease Denies: Hx Anticoagulant Therapy, Hx Diabetes Cardiovascular History: Denies: Hx Hypertension, Hx Pacemaker/ICD Respiratory History: Denies: Hx Asthma, Hx Chronic Obstructive Pulmonary Disease (COPD) GI History: Denies: Hx Ulcer History: Denies: Hx Renal Disease Sensory History: Denies: Hx Hearing Aid Psychiatric History: Denies: Hx Panic Disorder - Cancer History Cancer Type, Location and Year: Thyroid Hx Chemotherapy: No Hx Radiation Therapy: Yes - Surgical History Surgery Procedure, Year, and Place: LEFT NECK LYMPH NODE REMOVAL, THYROIDECTOMY. LEEP procedure 2019 Infectious Disease History: No Infectious Disease History: Denies: Hx Hepatitis, History Other Infectious Disease, Traveled Outside the [place] in Last 30 Days - Family History Known Family History: Positive: Other - no problems with bones or joints in parents or siblings - Social History Alcohol Use: Occasionally Alcohol Amount: 3-4 Hx Substance Use: No Substance Use Type: Reports: None Substance Use Comment - Amount & Last Used: once per week Hx Tobacco Use: Yes Smoking Status (MU): Heavy Every Day Tobacco Smoker Type: Cigarettes Amount Used/How Often: 1 PPD Have You Smoked in the Last Year: No Review of Systems Negative: Fever, Chills Negative: Erythema Negative: Sore Throat Negative: Chest Pain Negative: Shortness Of Breath, Cough Positive: Abdominal Pain, Nausea. Negative: Vomiting Positive: other - positive: heavy vaginal bleeding. Negative: dysuria, hematuria Negative: Myalgia, Edema Negative: Rash Neurological: Negative - dizziness All Other Systems Reviewed And Are Negative: Yes Physical Exam - Summary Physical Exam Summary: Constitutional: Well-developed, Well-nourished, Alert. (-) Distressed Skin: Warm, Dry HENT: Normocephalic; Atraumatic Eyes: Conjunctiva normal Neck: Musculoskeletal ROM normal neck. (-) JVD, (-) Stridor, (-) Tracheal deviation Cardio: Rhythm regular, rate normal, Heart sounds normal; Intact distal pulses; The pedal pulses are 2+ and symmetric. Radial pulses are 2+ and symmetric. (-) Murmur Pulmonary/Chest wall: Effort normal. (-) Respiratory distress, (-) Wheezes, (-) Rales Abd: Soft, (-) tenderness, (-) Distension, (-) Guarding, (-) Rebound, copious amounts of bleeding per vagina. Musculoskeletal: (-) Edema Lymph: (-) Cervical adenopathy Neuro: Alert, Oriented x3 Psych: Mood and affect Normal Triage Information Reviewed: Yes Vital Signs On Initial Exam: Initial Vitals Temp Pulse Resp BP Pulse Ox 99.5 F 114 18 168/111 98 09/21/18 15:35 09/21/18 15:35 09/21/18 15:35 09/21/18 15:35 09/21/18 15:35 Vital Signs Reviewed: Yes Diagnostics - Vital Signs Vital Signs Temp Pulse Resp BP Pulse Ox 09/21/18 15:35 99.5 F 114 18 168/111 98 - Laboratory Result Diagrams: 09/21/18 16:38 09/21/18 16:38 Lab Statement: Any lab studies that have been ordered have been reviewed, and results considered in the medical decision making process. Complex Multi-Symp Course/Dx Course Of Treatment: A 38 y/o female presents to [facility] with a chief complaint of heavy vaginal bleeding since 14:00 today. The physical exam revealed copious amounts of bleeding per vagina. GIANNA Dawson, was in attendence for exam. 3 boxes of 4x4 with spongestick were used and she continued to bleed bright red blood. In the ED course the patient was given Decadron IV, Ephedrine Sulfate, Fentanyl, Ferric Subsulfate, Lidocaine, Midazolam, Ondansetron, Propofol, Anectine and Sodium Chloride IV. Bloodwork and chemistries obtained and were WNL. Cased discussed with Dr. Villa, who accepted the patient for admission to the OR. The patient is agreeable with this plan. - Diagnoses Provider Diagnoses: Vaginal bleeding - Physician Notifications Discussed Care Of Patient With: Mariela Villa Time Discussed With Above Provider: 16:12 Instructed by Provider To: Admit As Inpatient - Critical Care Time Critical Care Time: 30-74 min Discharge - Sign-Out/Discharge Documenting (check all that apply): Patient Departure All imaging exams completed and their final reports reviewed: Yes Patient Received Moderate/Deep Sedation with Procedure: No - Discharge Plan Condition: Fair Disposition: ADMITTED TO [facility] - Billing Disposition and Condition Condition: FAIR Disposition: Admitted to [facility] - Attestation Statements Document Initiated by Harishe: Yes Documenting Scribe: Rj Mack Provider For Whom Brittany is Documenting (Include Credential): Manjeet Ward MD Scribe Attestation: Rj Calvillo scribed for Manjeet Ward MD on 09/27/18 at 1253. Scribe Documentation Reviewed: Yes Provider Attestation: The documentation as recorded by the Rj mcleod accurately reflects the service I personally performed and the decisions made by me, Manjeet Ward MD Status of Scribe Document: Viewed
[2018-09-21] MEDS ORDERED: NS 0.9% 1000 ML** 1,000 ML IV ONE (16:14)
[2018-09-21 16:48] LABS: ABS Basophils 0.1 10^3/ul (0-0.2); ABS Eosinophils 0.2 10^3/ul (0-0.6); ABS Lymphocytes 2.4 10^3/ul (1.0-4.8); ABS Monocytes 0.6 10^3/ul (0-0.8); ABS Neutrophils 8.3 10^3/ul (1.5-7.7); Eosinophil % 1.4 %; Hematocrit 37 % (35-47); Hemoglobin 12.7 g/dL (12.0-16.0); Mean Corpuscular HGB Conc 34 g/dL (31-36); Mean Corpuscular Hemoglobin 31 pg (27-31); Mean Corpuscular Volume 90 fL (80-97); Mean Platelet Volume 8.8 fL (7.4-10.4); Nucleated Red Blood Cells % 0.1; Platelet Count 297 10^3/uL (150-450); Red Blood Count 4.15 10^6 /uL (3.70-4.87); Red Cell Distribution Width 13 % (10.5-15); White Blood Count 11.6 10^3/uL (3.5-10.8)
[2018-09-21] MEDS ORDERED: Ferric Subsulfate* 1 dose = 10 mL Solution TOPICAL ONE (16:52)
[2018-09-21] MEDS ORDERED: Lidocaine 2% PF * 5 ML VIAL ONE (16:56)
[2018-09-21] MEDS ORDERED: Propofol* 10 MG/ML 20 ML BTL ONE (16:56)
[2018-09-21] MEDS ORDERED: Ondansetron INJ* 2 MG/ML VIAL ONE (16:56)
[2018-09-21] MEDS ORDERED: Midazolam* 1 MG/ML 5 ML VIAL (5 MG) ONE (16:56)
[2018-09-21] MEDS ORDERED: Succinylcholine* 20 MG/ML 10 ML VIAL ONE (16:56)
[2018-09-21] MEDS ORDERED: fentaNYL* 50 MCG/ML 2 ML VIAL (100 MCG VIAL) ONE (16:56)
[2018-09-21] MEDS ORDERED: Dexamethasone IV* 4 MG/ML 1 ML (4 MG) ONE (16:56)
--- OUTSIDE RECORDS SUMMARY | 2018-09-21 16:56 | XMS REPORT | Continuity of Care Document ---
:1980 External Reference #:[id number] Author Name Olga Bolivar Care Team Providers Name Role Phone Farooq Haque MD Primary Care Physician Unavailable Payers Date Identification Numbers Payment Provider Subscriber Effective: 2016 Policy Number: [id number] [employer] Gary Gonzalez PayID: [id number] [address] [place] [address] Problems Active Problems Provider Date Malignant tumor of thyroid gland Wiley Hamilton M.D. Onset: 09/14/2018 Trigeminal neuralgia Wiley Hamilton M.D. Onset: 09/14/2018 Displaced fracture of lateral malleolus of Destiny Zavala M.D. 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 Caps ER 12HR day.. Synthroid Take One Tablet Unknown 125mcg By Mouth Every Tablets Day Pindolol Take One Tablet Unknown 10mg Tablets By Mouth Every Night Bupropion HCL ER (XL) Take One Tablet Unknown By Mouth Every 300mg Tablets ER 24HR Morning History Medications Percocet 1 by mouth every 45tabs M25.572 Destiny Zavala, 12/09/2016 - 5-325mg 6 hours as M.D. 12/20/2016 Tablets needed pain Venlafaxine HCL ER Take One Capsule Unknown - By Mouth Every Unknown 150mg Caps ER 24HR Day Venlafaxine HCL ER Take One Capsule Unknown - By Mouth Every Unknown 75mg Caps ER 24HR Day Oxycodone-Acetaminop Take One Tablet Unknown - hen By Mouth Every 6 01/10/2017 5-325mg Tablets Hours as Needed For Pain Maximum Fredrick Xanax by mouth three Unknown - 0.5mg Tablets times a day as Unknown needed Adderall XR one tablet every Unknown - 15mg Caps morning Unknown ER 24HR Vital Signs Date Vital Result Comment 09/20/2018 9:08am Heart Rate 84 /min BP Systolic Sitting 124 mmHg BP Diastolic Sitting 80 mmHg Respiratory Rate 18 /min Body Temperature 98.0 F 09/14/2018 8:37am Height 64 inches 5'4" Weight 154.12 lb Heart Rate 72 /min BP Systolic Sitting 122 mmHg BP Diastolic Sitting 84 mmHg Respiratory Rate 16 /min BMI (Body Mass Index) 26.5 kg/m2 05/17/2018 9:08am Heart Rate 72 /min BP Systolic Sitting 102 mmHg BP Diastolic Sitting 68 mmHg Respiratory Rate 18 /min Body Temperature 97.9 F 05/02/2018 2:32pm Height 64 inches 5'4" Weight 155.00 lb Heart Rate 80 /min BP Systolic 104 mmHg BP Diastolic 78 mmHg Respiratory Rate 16 /min Body Temperature 98.0 F BMI (Body Mass Index) 26.6 kg/m2 01/11/2017 8:22am Height 64 inches 5'4" Weight 160.00 lb Heart Rate 79 /min BP Systolic 128 mmHg BP Diastolic 79 mmHg Pain Level 0 BMI (Body Mass Index) 27.5 kg/m2 12/21/2016 11:03am Height 64 inches 5'4" Weight 160.00 lb Heart Rate 84 /min BP Systolic 124 mmHg BP Diastolic 86 mmHg Respiratory Rate 18 /min Body Temperature 98.6 F Pain Level 2 BMI (Body Mass Index) 27.5 kg/m2 12/09/2016 9:05am Height 64 inches 5'4" Weight 160.00 lb Heart Rate 122 /min BP Systolic 132 mmHg BP Diastolic 87 mmHg BMI (Body Mass Index) 27.5 kg/m2 Results Test Date Facility Test Result H/L Range Note Comp Metabolic Panel 09/14/2018 [facility] Sodium 139 mmol/L N 135-[address] [place] [address] [phone] Potassium 4.2 mmol/L N 3.5-5.0 Chloride 107 mmol/L N 101-111 Co2 Carbon Dioxide 27 mmol/L N 22-32 Anion Gap 5 mmol/L N 2-11 Glucose 85 mg/dL N 70-100 Blood Urea Nitrogen 11 mg/dL N 6-24 Creatinine 0.77 mg/dL N 0.51-0.95 BUN/Creatinine Ratio 14.3 N 8-20 Calcium 9.0 mg/dL N 8.6-10.3 Total Protein 6.7 g/dL N 6.4-8.9 Albumin 4.3 g/dL N 3.2-5.2 Globulin 2.4 g/dL N 2-4 Albumin/Globulin Ratio 1.8 N 1-3 Total Bilirubin 0.40 mg/dL N 0.2-1.0 Alkaline Phosphatase 65 U/L N 34-104 Alt 14 U/L N 7-52 Ast 12 U/L Low 13-39 Egfr Non- 84.4 >60 Egfr 102.1 >60 1 CBC Auto 09/14/2018 [facility] White Blood 12.5 10^3/uL High 3.5-10.[address] [place] [address] [phone] Red Blood Count 4.37 10^6/uL N 3.70-4.87 Hemoglobin 13.2 g/dL N 12.0-16.0 Hematocrit 40 % N 35-47 Mean Corpuscular Volume 92 fL N 80-97 Mean Corpuscular Hemoglobin 30 pg N 27-31 Mean Corpuscular HGB Conc 33 g/dL N 31-36 Red Cell Distribution Width 13 % N 10.5-15 Platelet Count 267 10^3/uL N 150-450 Mean Platelet Volume 9.0 fL N 7.4-10.4 Abs Neutrophils 9.9 10^3/uL High 1.5-7.7 Abs Lymphocytes 1.7 10^3/uL N 1.0-4.8 Abs Monocytes 0.6 10^3/uL N 0-0.8 Abs Eosinophils 0.2 10^3/uL N 0-0.6 Abs Basophils 0.1 10^3/uL N 0-0.2 Abs Nucleated RBC 0.0 10^3/uL Granulocyte % 79.8 % Lymphocyte % 13.7 % Monocyte % 4.6 % Eosinophil % 1.3 % Basophil % 0.6 % Nucleated Red Blood Cells % 0.0 Laboratory test 09/14/2018 [facility] Erythrocyte Sed 2 mm/Hr N 0-[address] [place] [address] [phone] C Reactive Protein 2.26 mg/L N <8.01 Lyme Screen W/ Reflex To WB Negative Negative Laboratory test 05/08/2018 [facility] Surgical SEE RESULT 2 , [address] [place] [address] [phone] 1 Because ethnic data is not always readily [...] 15-29 5 Kidney failure <15 (or dialysis) 2 [id number] 3 SEE RESULT BELOW Name: ASHLEY GONZALEZ : [address]: Aidee Linares MD Acct: [id number] Unit: [id number] AGE: 37 [facility]05/08/18 SEX: F Status: REG REF SPEC: [id number] JAM: 05/08/18-[address] [facility] [address]: Primo Galindo MD REQ: [id number] RECD: 05/08/18 STATUS: DELMY HUNTER DR: iAdee Linares MD _ ORDERED: LEVEL 4 COMMENTS: [id number] FINAL DIAGNOSIS Breast, left, 1:00, 4 cm from nipple, core biopsy: -- Benign breast hamartoma. -- No evidence of invasive or in situ carcinoma. COMMENT: Clinical and radiologic correlation is recommended. The findings were discussed with Dr. Haque. PRE-OPERATIVE DIAGNOSIS Left breast mass at 1:00, 4 cm from nipple 2.1 x 1.0 x 2.4 cm. GROSS DESCRIPTION The specimen is received in formalin labeled, Left Breast Core Biopsies, and consists of a 1.6 x 0.2 cm hoang-white to pink fibrofatty soft tissue core which is submitted entirely in one cassette. Signed by and Reported on: Carolin Graham MD 05/09/18 1003 END OF REPORT DEPARTMENT OF PATHOLOGY, [address] [place] [address] Kwesi Salgado M.D. 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 ankle and joints of left foot S82.62xA Disp fx of lateral malleolus of left fibula, init Plan of Treatment Future Appointment(s):10/25/2018 1:00 pm - Rayray Marte N.P. at [facility]09/20/2018 - Aidee Linares, MDD48.62 Neoplasm of uncertain behavior of left breastFollow up:Please return to see her primary care physician for routine mammogram at the end of this year. 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
--- OUTSIDE RECORDS SUMMARY | 2018-09-21 16:56 | XMS REPORT | Continuity of Care Document ---
:1980 External Reference #:[id number] Author Name Faith Winter Care Team Providers Name Role Phone Farooq Haque MD Primary Care Physician Unavailable Payers Date Identification Numbers Payment Provider Subscriber Effective: 2016 Policy Number: [id number] [employer] Gary Gonzalez PayID: [id number] [address] [place] [address] Problems Active Problems Provider Date Malignant tumor [...] Use Denies Drug Use Smoking Status Reviewed: 09/14/18 Heavy tobacco smoker (more than 10 cigarettes/day) [...] 24HR Vital Signs Date Vital Result Comment 09/14/2018 8:37am Height 64 inches 5'4" Weight [...] Date Facility Test Result H/L Range Note Laboratory test 05/08/2018 [facility] Surgical SEE RESULT 1 , [address] [place] [address] [phone] 1 [id number] 2 SEE RESULT BELOW Name: ASHLEY GONZALEZ : [address]: Aidee Linares MD Acct: [id number] Unit: [id number] AGE: 37 Location: [facility] Re05/08/18 SEX: F Status: REG REF SPEC: [id number] JAM: 05/08/18-[address] [facility] [address]: Primo Galindo MD REQ: [id number] RECD: 05/08/181218 STATUS: DELMY HUNTER DR: Aidee Linares MD _ ORDERED: LEVEL 4 COMMENTS: [id number] FINAL DIAGNOSIS Breast, left, 1:00, 4 cm [...] 1003 END OF REPORT DEPARTMENT OF PATHOLOGY, [address] [place] [address] Kwesi Salgado M.D. 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 at [facility]09/20/2018 9:00 am - Aidee Linares MD at [facility]09/14/2018 - Wiley Hamilton M.D.G50.0 Trigeminal neuralgiaNew Medication:Carbamazepine ER 200 mg - take 1 cap by mouth twice a day..New Xrays:MRI Brain W/Wo, Ordered: 09/14/18Follow up:Follow up in 1 month Sedrick MarteRecommendations:Call me 1 week after the MRIC73 Malignant neoplasm of thyroid gland
[2018-09-21 16:57] LABS: Activated Partial Thrombo Time 29.9 seconds (26.0-36.3); INR 1.04 (0.82-1.09)
[2018-09-21 17:07] LABS: Albumin 4.2 g/dL (3.2-5.2); Albumin/Globulin Ratio 1.6 (1-3); BUN/Creatinine Ratio 18.1 (8-20); Calcium 9.2 mg/dL (8.6-10.3); EGFR African American 110.3 (>60); EGFR Non-African American 91.1 (>60); Globulin 2.6 g/dL (2-4); Potassium 3.7 mmol/L (3.5-5.0); Total Bilirubin 0.2 mg/dL (0.2-1.0); Total Protein 6.8 g/dL (6.4-8.9)
[2018-09-21] MEDS ORDERED: ceFAZolin 2 GM PREMIX in ORs 2 GM/50 ML BAG IVPB ONE (17:09)
[2018-09-21] MEDS ORDERED: EPHEDrine (Pressors)* 50 MG/ML VIAL ONE (17:32)
[2018-09-21] MEDS ORDERED: Ondansetron INJ* 2 MG/ML VIAL IV PRN (17:45)
[2018-09-21] MEDS ORDERED: Naloxone* 0.4 MG/ML 1 ML VIAL IV PRN (17:45)
[2018-09-21] MEDS ORDERED: fentaNYL* 50 MCG/ML 2 ML VIAL (100 MCG VIAL) IV PRN (17:45)
[2018-09-21] MEDS ORDERED: Ibuprofen TAB* 600 MG PO PRN (18:15)
[2018-09-21 18:39] VITALS: BP 132/81
--- NOTE | 2018-09-21 22:15 | OP ---
CC: Mariela Villa MD, [facility] BRIEF OPERATIVE REPORT: DATE OF OPERATION: 09/21/18 DATE OF : [birth year] SURGEON: Mariela Villa MD ANESTHESIOLOGIST: Dr. Schuler ANESTHESIA: General endotracheal. PRE-OP DIAGNOSIS: Active bleeding from the cervix status post LEEP procedure at an outside hospital on 09/07/18. POST-OP DIAGNOSIS: Active bleeding from the cervix status post LEEP procedure at an outside hospital on 09/07/18. OPERATIVE PROCEDURE: Suturing of posterior cervix. ESTIMATED BLOOD LOSS: Approximately 300 cc of blood and clots. SPECIMENS: None. FLUIDS: Per Anesthesia. DRAINS: None. FINDINGS: Large midline cervix. The endocervix appears cauterized. The endocervical canal was patent. There was active bleeding from the posterior lip of the cervix. IUD strings were not visualized. COMPLICATIONS: None. COUNTS: Sponge, lap and needle counts were correct x2. The patient was brought to recovery room, awake and in stable condition. DESCRIPTION OF PROCEDURE: The patient was brought to the operating room. When general general anesthesia was found to be adequate, the patient was prepped and draped in the usual sterile fashion in the dorsal lithotomy position. Time- out was performed. A weighted speculum was placed in the vagina. The anterior lip of the cervix was visualized after the vagina was cleared of blood and clots and the anterior lip of the cervix was grasped with the single tooth tenaculum. The posterior cervical lip was actively bleeding. There is approximately 1.5 cm linear appearing area that was actively bleeding. This area was sutured using 2-0 Vicryl. Excellent hemostasis was obtained. The endocervical canal was confirmed by placing a Rupali dilator just at the entrance. The remainder of the cervix appeared normal status post LEEP procedure with healing. The vaginal robb appeared normal. The IUD strings were not visualized. All instruments removed from the vagina. The patient was brought to recovery room awake and in stable condition. [id number]/[facility] #: [id number] [facility]
== END 2018-09-21 19:09 | disposition home or self-care (01) ==
LOC: ED 15:33 → OR 16:51
PROVIDERS: ATTEND Obstetrics & Gynecology
DX: N99.820 Postprocedural hemorrhage of a genitourinary system organ or structure following a genitourinary system procedure (principal); Z85.850 Personal history of malignant neoplasm of thyroid; R10.9 Unspecified abdominal pain; R11.0 Nausea; I10 Essential (primary) hypertension; E89.0 Postprocedural hypothyroidism; F43.10 Post-traumatic stress disorder, unspecified
CPT/HCPCS: 36415; 80053; 85025; 85610; 85730; 86850; 86900; 86901; 99285; A9270-GY; J0330; J0690; J1100; J2250; J2405; J2704; J3010

== ENCOUNTER 2018-11-02 19:55 | Emergency (ER) | payer OTHER ==
--- OUTSIDE RECORDS SUMMARY | 2018-11-02 20:09 | XMS REPORT | Continuity of Care Document ---
:1980 External Reference #:[id number] Author Name Faith Winter Care Team Providers Name Role Phone Farooq Haque MD Primary Care Physician Unavailable Payers Date Identification Numbers Payment Provider Subscriber Effective: 2016 Policy Number: [id number] [employer] Gary Gonzalez PayID: [id number] [address] [place] [address] Problems Active Problems Provider Date Displaced fracture of lateral malleolus of Destiny Zavala M.D. Onset: 2016 left fibula, subsequent encounter for closed fracture with routine healing Trigeminal neuralgia Wiley Hamilton M.D. Onset: 09/14/2018 Malignant tumor of thyroid gland Wiley Hamilton M.D. 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 Tobacco Use Start: Unknown current cigarette smoker Smoking Status Reviewed: 10/25/18 current cigarette smoker Smokeless Tobacco Never Used Smokeless Tobacco ETOH Use Occasionally consumes alcohol Tobacco Use Start: Unknown Heavy tobacco smoker (more than 10 cigarettes/day) Recreational Drug Use Denies Drug Use Exercise Type/Frequency Does not exercise Contraceptive Methods Current methods include Mirena levonorgestrel IUD Allergies, Adverse Reactions, Alerts Description No Known Drug Allergies Medications Active Medications SIG Qnty Indications Ordering Provider Date Carbamazepine ER take 1 cap by 60caps G50.0 Wiley Hamilton, 09/14/2018 200mg mouth once a M.D. Caps ER 12HR day.. Synthroid Take One Tablet Unknown 125mcg By Mouth Every Tablets Day Pindolol Take One Tablet Unknown 10mg Tablets By Mouth Every Night Bupropion HCL ER (XL) Take One Tablet Unknown By Mouth Every 300mg Tablets ER 24HR Morning SM Calcium one tablet by Unknown 500/Vitamin D3 mouth daily [id number] Tablets History Medications Percocet 1 by mouth every [...] 24HR Vital Signs Date Vital Result Comment 10/25/2018 1:04pm Height 63.75 inches 5'3.75" Weight 155.00 lb Heart Rate 95 /min BP Systolic 122 mmHg BP Diastolic 82 mmHg BMI (Body Mass Index) 26.8 kg/m2 09/27/2018 3:55pm Height 63.75 inches 5'3.75" Weight 151.00 lb Heart Rate 80 /min BP Systolic 113 mmHg BP Diastolic 75 mmHg O2 % BldC Oximetry 100 % BMI (Body Mass Index) 26.1 kg/m2 Last Menstrual Period [id number] 09/20/2018 9:08am Heart Rate 84 /min BP [...] H/L Range Note Comp Metabolic Panel 09/14/2018 [facility] Sodium 139 mmol/L N 135-145 [address] [place] [address] [phone] Potassium 4.2 mmol/L N 3.5-5.0 Chloride 107 [...] Egfr 102.1 >60 1 CBC Auto 09/14/2018 [facility] White Blood 12.5 10^3/uL High 3.5-10.[address] [place] [address] [phone] Red Blood Count 4.37 10^6/uL N 3.70-4.87 [...] Blood Cells % 0.0 Laboratory test 09/14/2018 [facility] Erythrocyte Sed 2 mm/Hr N 0-[address] [place] [address] [phone] C Reactive Protein 2.26 mg/L N <8.01 Lyme Screen W/ Reflex To WB Negative Negative Laboratory test 05/08/2018 [facility] Surgical SEE RESULT 2 , [address] [address] [phone] 1 Because ethnic data is not always [...] 5 Kidney failure <15 (or dialysis) 2 [id number] 3 SEE RESULT BELOW Name: ASHLEY GONZALEZ : [address]: Aidee Linares MD Acct: [id number] Unit: [id number] AGE: 37 Location: [facility] Re05/08/18 SEX: F Status: REG REF SPEC: [id number] JAM: 05/08/18-[address] [facility] [address]: Primo Galindo MD REQ: [id number] RECD: 05/08/18 STATUS: DELMY HUNTER DR: Aidee Linares MD _ ORDERED: LEVEL 4 COMMENTS: [id number] FINAL DIAGNOSIS Breast, left, 1:00, 4 cm [...] consists of a 1.6 x 0.2 cm haong-white to pink fibrofatty soft tissue core which is submitted entirely in one cassette. Signed by and Reported on: Carolin Graham MD 05/09/18 1003 END OF REPORT DEPARTMENT OF PATHOLOGY, [address] [place] [address] Kwesi Salgado M.D. 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 Office Visit 09/14/2018 8:30a Fatmata Hamilton, G50.0 Trigeminal Neurologic MVaishali neuralgia [facility] Z85.850 Personal history of malignant neoplasm of thyroid Office Visit 05/17/2018 9:00a Surgical Aidee Linares, D48.62 Neoplasm of [facility] uncertain behavior of left breast 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 at [facility]10/25/2018 - Rayray Marte N.DajuanG50.0 Trigeminal neuralgiaReferral:Daniel Castellanos, PH.D., Surgery,NeurologicalFollow up:[address] Shortmendations:lab work first thing in the ztycukxN29.02 Abnormal brain scanNew Labs:Basic Metabolic Panel, Ordered: 10/25/18New Xrays:Cta Head, Ordered: 10/25/18
[2018-11-02 20:19] VITALS: BP 116/75
[2018-11-02 21:01] LABS: Influenza A Molecular NEGATIVE (Negative); Influenza B Molecular NEGATIVE (Negative)
--- NOTE | 2018-11-02 21:41 | UC ---
Throat Pain/Nasal [place] HPI - HPI Summary HPI Summary: 1 DAY OF ITCHY, SORE THROAT AND PAIN WITH SWALLOWING. FEVER 101.5. GOOD RESPONSE TO TYLENOL. HAS OVERALL MALAISE AND FEELS ACHY. DENIES ANY COUGH OR CONGESTION. NO NAUSEA/VOMITING. - History of Current Complaint Chief Complaint: UCGeneralIllness Stated Complaint: FLU SYMPTOMS Time Seen by Provider: 11/02/18 21:23 Hx Obtained From: Patient, Family/Expressive Therapist Hx Last Menstrual Period: mirena ring Onset/Duration: Gradual Onset, Lasting Days - 1 day, Still Present Severity: Moderate Pain Intensity: 6 Pain Scale Used: 0-10 Numeric Cough: None Associated Signs & Symptoms: Positive: Fever - Allergies/Home Medications Allergies/Adverse Reactions: Allergies Allergy/AdvReac Type Severity Reaction Status Date / Time No Known Allergies Allergy Verified 11/02/18 20:22 Home Medications: Home Medications carBAMazepine ER TAB(*) [Tegretol Xr TAB(*)] 200 mg PO BEDTIME 11/02/18 [ History Confirmed 11/02/18] PMH/Surg Hx/FS Hx/Imm Hx Previously Healthy: Yes Other History Of: Negative For: Anticoagulant Therapy - Surgical History Surgical History: Yes Surgery Procedure, Year, and Place: LEFT NECK LYMPH NODE REMOVAL,. THYROIDECTOMY 2006. LEEP 2019 - Family History Known Family History: Positive: None, Other - no problems with bones or joints in parents or siblings - Social History Alcohol Use: Occasionally Alcohol Amount: 3-4 Substance Use Type: None Substance Use Comment - Amount & Last Used: once per week Smoking Status (MU): Heavy Every Day Tobacco Smoker Type: Cigarettes Amount Used/How Often: 1 PPD Have You Smoked in the Last Year: No Household Exposure Type: Cigarettes Review of Systems All Other Systems Reviewed And Are Negative: Yes Constitutional: Positive: Fever, Fatigue ENT: Positive: Sore Throat Respiratory: Positive: Negative Cardiovascular: Positive: Negative Gastrointestinal: Positive: Negative Musculoskeletal: Positive: Myalgia Physical Exam Triage Information Reviewed: Yes Appearance: Well-Appearing, No Pain Distress, Well-Nourished Vital Signs: Initial Vital Signs Temp 100 F 11/02/18 20:16 Pulse 92 11/02/18 20:16 Resp 16 11/02/18 20:16 BP 116/75 11/02/18 20:16 Pulse Ox 98 11/02/18 20:16 Laboratory Tests 11/02/18 11/02/18 20:47 20:49 Influenza A (Rapid) Negative Influenza B (Rapid) Negative Group A Strep Rapid Negative Vital Signs Reviewed: Yes Eyes: Positive: Conjunctiva Clear ENT: Positive: Hearing grossly normal, Pharynx normal, TMs normal Neck: Positive: Supple, Nontender, No Lymphadenopathy Respiratory Exam: Normal Cardiovascular Exam: Normal Abdomen Description: Positive: Soft Musculoskeletal: Positive: No Edema Neurological: Positive: Alert Psychological: Positive: Age Appropriate Behavior Skin: Negative: Rashes Throat Pain/Nasal Course/Dx - Differential Dx/Diagnosis Provider Diagnosis: Acute viral pharyngitis Discharge - Sign-Out/Discharge Documenting (check all that apply): Patient Departure All imaging exams completed and their final reports reviewed: No Studies - Discharge Plan Condition: Stable Disposition: HOME Patient Education Materials: Pharyngitis (ED) Forms: *Work Release Referrals: Farooq Haque MD [Primary Care Provider] - If Needed Additional Instructions: STREP TEST NEGATIVE. FLU TEST NEGATIVE. YOUR SYMPTOMS ARE LIKELY VIRALLY MEDIATED AND SHOULD RESOLVE ON THEIR OWN WITH TIME. NO INDICATION FOR ANTIBIOTICS AT PRESENT. REST, HYDRATE, OTC MEDS NEEDED. SEEK FOLLOW-UP IF YOU ARE NOT IMPROVING OVER THE NEXT 1-2 WEEKS. - Billing Disposition and Condition Condition: STABLE Disposition: Home
== END 2018-11-02 21:43 | disposition home or self-care (01) ==
LOC: UCEAST 19:55
DX: J02.8 Acute pharyngitis due to other specified organisms (principal); F17.210 Nicotine dependence, cigarettes, uncomplicated
CPT/HCPCS: 87651; 99211; G0463

== ENCOUNTER 2019-03-25 13:32 | Emergency (ER) | payer OTHER ==
--- OUTSIDE RECORDS SUMMARY | 2019-03-25 13:46 | XMS REPORT | Continuity of Care Document ---
:1980 External Reference #:[id number] Author Name Wiley Hamilton M.D. 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 Onset: 2016 left fibula, subsequent encounter for closed fracture with routine healing Trigeminal neuralgia Wiley Hamilton M.D. Onset: 09/14/2018 Malignant tumor of thyroid gland Wiley Hamilton M.D. Onset: 09/14/2018 Abnormal results function studies of central Wiley Hamilton M.D. Onset: nervous system Social History Type Date Description Comments Sex Unknown Tobacco Use Start: Unknown current cigarette smoker Smoking Status Reviewed: 10/25/18 current cigarette smoker Smokeless Tobacco Never Used Smokeless Tobacco ETOH Use Occasionally consumes alcohol Tobacco Use Start: Unknown Heavy tobacco smoker (more than 10 cigarettes/day) Recreational Drug Use Denies Drug Use Exercise Type/Frequency Does not exercise Allergies, Adverse Reactions, Alerts Description No Known [...] Mouth Every Night Bupropion HCL ER (XL) 200 MG Take One Unknown Tablet By Mouth 150mg Tablets ER 24HR Every Morning SM Calcium one tablet by Unknown 500/Vitamin D3 mouth daily [id number] Tablets Immunizations Description No Information Available Vital Signs Date Vital Result Comment 02/01/2019 2:51pm Height 63.75 inches 5'3.75" Weight 155.00 lb Heart Rate 84 /min BP Systolic 109 mmHg BP Diastolic 72 mmHg BMI (Body Mass Index) 26.8 kg/m2 10/25/2018 1:04pm Height 63.75 inches 5'3.75" Weight 155.00 lb Heart Rate 95 /min BP Systolic 122 mmHg BP Diastolic 82 mmHg BMI (Body Mass Index) 26.8 kg/m2 Results Test Date Facility Test Result H/L Range Note Laboratory test [facility] Carbamazepine 4.0 g/mL Normal 4.0-12.[address] (Tegretol) [place] [address] [phone] Comp Metabolic [facility] Sodium 138 mmol/L Normal 135-[address] [place] [address] [phone] Potassium 3.8 mmol/L Normal 3.5-5.0 Chloride 104 mmol/L Normal 101-111 Co2 Carbon Dioxide 28 mmol/L Normal 22-32 Anion Gap 6 mmol/L Normal 2-11 Glucose 90 mg/dL Normal 70-100 Blood Urea Nitrogen 15 mg/dL Normal 6-24 Creatinine 0.94 mg/dL Normal 0.51-0.95 BUN/Creatinine Ratio 16.0 Normal 8-20 Calcium 9.3 mg/dL Normal 8.6-10.3 Total Protein 6.9 g/dL Normal 6.4-8.9 Albumin 4.7 g/dL Normal 3.2-5.2 Globulin 2.2 g/dL Normal 2-4 Albumin/Globulin Ratio 2.1 Normal 1-3 Total Bilirubin 0.40 mg/dL Normal 0.2-1.0 Alkaline Phosphatase 66 U/L Normal 34-104 Alt 14 U/L Normal 7-52 Ast 12 U/L Low 13-39 Egfr Non- 67.0 >60 Egfr 81.1 >60 1 CBC Auto 01/31/2019 [facility] White Blood 7.9 10^3/uL Normal 3.5-10.[address] Count [place], [place] [id number] [phone] Red Blood Count 4.60 10^6/uL Normal 3.70-4.87 Hemoglobin 13.4 g/dL Normal 12.0-16.0 Hematocrit 39 % Normal 35-47 Mean Corpuscular Volume 85 fL Normal 80-97 Mean Corpuscular Hemoglobin 29 pg Normal 27-31 Mean Corpuscular HGB Conc 34 g/dL Normal 31-36 Red Cell Distribution Width 16 % High 10-15 Platelet Count 259 10^3/uL Normal 150-450 Mean Platelet Volume 9.1 fL Normal 7.4-10.4 Abs Neutrophils 5.1 10^3/uL Normal 1.5-7.7 Abs Lymphocytes 2.3 10^3/uL Normal 1.0-4.8 Abs Monocytes 0.4 10^3/uL Normal 0-0.8 Abs Eosinophils 0.1 10^3/uL Normal 0-0.6 Abs Basophils 0.0 10^3/uL Normal 0-0.2 Abs Nucleated RBC 0.0 10^3/uL Granulocyte % 64.3 % Lymphocyte % 28.7 % Monocyte % 5.6 % Eosinophil % 0.8 % Basophil % 0.6 % Nucleated Red Blood Cells % 0.1 Basic Metabolic 10/31/2018 [facility] Sodium 141 mmol/L Normal 135-145 Panel [address] [place] [address] [phone] Potassium 4.0 mmol/L Normal 3.5-5.0 Chloride 107 mmol/L Normal 101-111 Co2 Carbon Dioxide 28 mmol/L Normal 22-32 Anion Gap 6 mmol/L Normal 2-11 Glucose 111 mg/dL High 70-100 Blood Urea Nitrogen 13 mg/dL Normal 6-24 Creatinine 0.80 mg/dL Normal 0.51-0.95 BUN/Creatinine Ratio 16.3 Normal 8-20 Calcium 9.1 mg/dL Normal 8.6-10.3 Egfr Non- 80.7 >60 Egfr 97.7 >60 2 Comp Metabolic 09/14/2018 [facility] Sodium 139 mmol/L Normal 135-145 Panel [address] [place] [address] [phone] Potassium 4.2 mmol/L Normal 3.5-5.0 Chloride 107 mmol/L Normal 101-111 Co2 Carbon Dioxide 27 mmol/L Normal 22-32 Anion Gap 5 mmol/L Normal 2-11 Glucose 85 mg/dL Normal 70-100 Blood Urea Nitrogen 11 mg/dL Normal 6-24 Creatinine 0.77 mg/dL Normal 0.51-0.95 BUN/Creatinine Ratio 14.3 Normal 8-20 Calcium 9.0 mg/dL Normal 8.6-10.3 Total Protein 6.7 g/dL Normal 6.4-8.9 Albumin 4.3 g/dL Normal 3.2-5.2 Globulin 2.4 g/dL Normal 2-4 Albumin/Globulin Ratio 1.8 Normal 1-3 Total Bilirubin 0.40 mg/dL Normal 0.2-1.0 Alkaline Phosphatase 65 U/L Normal 34-104 Alt 14 U/L Normal 7-52 Ast 12 U/L Low 13-39 Egfr Non- 84.4 >60 Egfr 102.1 >60 3 CBC Auto 09/14/2018 [facility] White Blood 12.5 10^3/uL High 3.5-10.[address] [place] [address] [phone] Red Blood Count 4.37 10^6/uL Normal 3.70-4.87 Hemoglobin 13.2 g/dL Normal 12.0-16.0 Hematocrit 40 % Normal 35-47 Mean Corpuscular Volume 92 fL Normal 80-97 Mean Corpuscular Hemoglobin 30 pg Normal 27-31 Mean Corpuscular HGB Conc 33 g/dL Normal 31-36 Red Cell Distribution Width 13 % Normal 10.5-15 Platelet Count 267 10^3/uL Normal 150-450 Mean Platelet Volume 9.0 fL Normal 7.4-10.4 Abs Neutrophils 9.9 10^3/uL High 1.5-7.7 Abs Lymphocytes 1.7 10^3/uL Normal 1.0-4.8 Abs Monocytes 0.6 10^3/uL Normal 0-0.8 Abs Eosinophils 0.2 10^3/uL Normal 0-0.6 Abs Basophils 0.1 10^3/uL Normal 0-0.2 Abs Nucleated RBC 0.0 10^3/uL Granulocyte % 79.8 % Lymphocyte % 13.7 % Monocyte % 4.6 % Eosinophil % 1.3 % Basophil % 0.6 % Nucleated Red Blood Cells % 0.0 Laboratory test 09/14/2018 [facility] Erythrocyte Sed 2 mm/Hr Normal 0-[address] [place] [address] [phone] C Reactive Protein 2.26 mg/L Normal <8.01 Lyme Screen W/ Reflex To WB Negative Negative 1 Because ethnic data is not always [...] 5 Kidney failure <15 (or dialysis) 2 Because ethnic data is not always readily [...] 15-29 5 Kidney failure <15 (or dialysis) 3 Because ethnic data is not always readily [...] 5 Kidney failure <15 (or dialysis) Procedures Date Code Description Status 09/21/2018 99132 Trachelorrhaphy Vaginal Approach Completed 05/08/2018 [id number] Mammogram Completed 04/13/2018 [id number] Mammogram Completed Medical Devices Description No Information Available Encounters Type Date Location Provider Dx Diagnosis Office Visit 10/25/2018 [facility] Rayray Marte G50.0 Trigeminal 1:00p [facility] N.P. 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 02/01/2019 R94.02 Abnormal brain scan Wiley Hamilton M.D. 10/25/2018 G50.0 Trigeminal neuralgia Rayray Marte, N.P. 10/25/2018 R94.02 Abnormal brain scan Rayray Marte, N.P. 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 09/14/2018 Z85.850 Personal history of malignant neoplasm of Wiley Hamilton M.D. thyroid Plan of Treatment Future Appointment(s):08/02/2019 3:45 pm - Wiley [facility] M.D. at [facility]02/01/2019 - Wiley Hamilton M.D.G50.0 Trigeminal neuralgiaFollow up:Follow up in 6 tbddwfL04.02 Abnormal brain scan Functional Status Description No Information Available Mental Status Description No Information Available Referrals Refer to Dr Reason for Referral Status Appt Date Daniel Castellanos, PH.D. Sent [address] [place] [address] [phone]
[2019-03-25 13:57] VITALS: BP 113/77
[2019-03-25] MEDS ORDERED: Tetan/Diph/Pertus SYR(Tdap)* 0.5 ML SYR(BOOSTRIX) use SYR contains LATEX IM ONE (14:39)
--- NOTE | 2019-03-25 14:49 | UC ---
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 A few hours ago she inadvertently sustained a superficial needle stick to her left thumb. The needle was a 30-gauge needle for which she had just injected insulin. The HIV status of the source is unknown. She states her last tetanus shot was 10 years ago. She is right handed. She states she has been immunized for hepatitis B. - History Of Current Complaint Chief Complaint: UCGeneralIllness Stated Complaint: NEEDLE STICK Time Seen by Provider: 03/25/19 14:31 Hx Obtained From: Patient Hx Last Menstrual Period: mirena Onset/Duration: Sudden Onset, Lasting Hours Severity Currently: None Pain Intensity: 0 Pain Scale Used: 0-10 Numeric Character Of Pain: Sharp Alleviating Factor(s): Nothing Associated Signs And Symptoms: Positive: Negative Related History: Occupational Injury, Dominant Hand Right Hands: 1 - minute pw - Allergies/Home Medications Allergies/Adverse Reactions: Allergies Allergy/AdvReac Type Severity Reaction Status Date / Time No Known Allergies Allergy Verified 03/25/19 13:56 PMH/Surg Hx/FS Hx/Imm Hx Previously Healthy: Yes Other History Of: Negative For: Anticoagulant Therapy - Surgical History Surgical History: Yes Surgery Procedure, Year, and Place: LEFT NECK LYMPH NODE REMOVAL,. THYROIDECTOMY 2007 cancer. LEE 2019 - Family History Known Family History: Positive: None, Other - no problems with bones or joints in parents or siblings, Non-Contributory - Social History Alcohol Use: Occasionally Alcohol Amount: 3-4 Substance Use Type: None Substance Use Comment - Amount & Last Used: once per week Smoking Status (MU): Former Smoker Type: Cigarettes Amount Used/How Often: 1 PPD Have You Smoked in the Last Year: No Household Exposure Type: Cigarettes - Immunization History Most Recent Tetanus Shot: Will need Review of Systems All Other Systems Reviewed And Are Negative: Yes Constitutional: Positive: Negative Skin: Positive: Negative Eyes: Positive: Negative ENT: Positive: Negative Respiratory: Positive: Negative Cardiovascular: Positive: Negative Gastrointestinal: Positive: Negative Genitourinary: Positive: Negative Motor: Positive: Negative Neurovascular: Positive: Negative Musculoskeletal: Positive: Negative Neurological: Positive: Negative Psychological: Positive: Negative Physical Exam Triage Information Reviewed: Yes Appearance: Well-Appearing, No Pain Distress, Well-Nourished Vital Signs: Initial Vital Signs Temp 98.3 F 03/25/19 13:51 Pulse 84 03/25/19 13:51 Resp 18 03/25/19 13:51 BP 113/77 03/25/19 13:51 Pulse Ox 98 03/25/19 13:51 Vital Signs Reviewed: Yes Eyes: Positive: Conjunctiva Clear ENT: Positive: Hearing grossly normal. Negative: Nasal congestion, Nasal drainage, Muffled voice, Hoarse voice Dental Exam: Normal Neck: Positive: Supple, Nontender, No Lymphadenopathy Respiratory: Positive: Lungs clear, Normal breath sounds, No respiratory distress Cardiovascular: Positive: RRR, No Murmur Abdominal Exam: Normal Bowel Sounds: Positive: Present Musculoskeletal: Positive: ROM Intact, No Edema Neurological: Positive: Alert Psychological Exam: Normal Skin Exam: Other - minute superficial PW Hand/Wrist Course/Dx - Course Course Of Treatment: call PEP hotline twice unable to get through to a person went to there website according to there algorithm PEP not suggested - Differential Dx/Diagnosis Provider Diagnosis: Needlestick injury accident with exposure to body fluid Discharge ED - Sign-Out/Discharge Documenting (check all that apply): Patient Departure All imaging exams completed and their final reports reviewed: No Studies - Discharge Plan Condition: Stable Disposition: HOME Patient Education Materials: Puncture Wound (ED) Referrals: Sanjeev Vilchis MD [Medical Doctor] - 2 Weeks Additional Instructions: post exposure prophylaxis not recommended at PEP Clinician's hotline there website is [email or web address] if you desire more info the greater - Billing Disposition and Condition Condition: STABLE Disposition: Home
[2019-03-25 19:58] LABS: Hepatitis B Surface Antigen Nonreactive (Nonreactive)
[2019-03-25 20:15] LABS: Hepatitis B Surface Ab Immune (Immune); Hepatitis C Antibody Negative (Negative)
[2019-03-25 20:47] LABS: HIV 4th Generation Nonreactive (Nonreactive)
--- NOTE | 2019-03-26 11:03 | UC ---
- Progress Note Progress Note: LABS REVIEWED. HIV NONREACTIVE. HEP C NEGATIVE. HEP B SURFACE ANTIGEN NONREACTIVE. HEP B IMMUNE. NO CHANGE IN MANAGEMENT. FOLLOW-UP OCCUPATIONAL HEALTH ADVISED. Course/Dx - Diagnoses Provider Diagnoses: Needlestick injury accident with exposure to body fluid Discharge ED - Sign-Out/Discharge Documenting (check all that apply): Post-Discharge Follow Up All imaging exams completed and their final reports reviewed: No Studies - Discharge Plan Condition: Stable Disposition: HOME Patient Education Materials: Puncture Wound (ED) Referrals: Sanjeev Vilchis MD [Medical Doctor] - 2 Weeks Additional Instructions: post exposure prophylaxis not recommended at PEP Clinician's hotline there website is [email or web address] if you desire more info the greater - Billing Disposition and Condition Condition: STABLE Disposition: Home
== END 2019-03-25 15:15 | disposition home or self-care (01) ==
LOC: UCEAST 13:32
DX: S60.392A Other superficial injuries of left thumb, initial encounter (principal); Z77.21 Contact with and (suspected) exposure to potentially hazardous body fluids; Z23 Encounter for immunization; Z87.891 Personal history of nicotine dependence; W46.0XXA Contact with hypodermic needle, initial encounter; Y92.9 Unspecified place or not applicable
CPT/HCPCS: 36415; 86706; 86803; 87340; 87389; 90715; 99211; G0463